=== PATIENT | female | born 1965 | race Caucasian/White ===

== ENCOUNTER 2016-11-14 16:10 | Emergency (ER) | payer OTHER ==
[~2016-11-14] VITALS: Ht 165.1 cm; Wt 110.7 kg
[~2016-11-14 16:10] MED LIST: AMPICILLIN500 MG PO; ATARAX25 MG PO; AUGMENTIN 875875 MG PO; BLOOD PRESSURE MED; KLONOPIN1 MG PO; MEDROL DOSEPAK4 MG PO; MOTRIN800 MG PO
[2016-11-14 16:45] LABS: BASO % 0.4 % (0.0-1.0); EOS # 0.1 10*3/uL (0.0-0.4); EOS % 1.4 % (1.0-4.0); HEMATOCRIT 42.6 % (37.0-47.0); HEMOGLOBIN 13.7 g/dl (12.0-16.0); LYMPH # 1.4 10*3/uL (1.3-4.4); LYMPH % 26.5 % (27.0-41.0); MEAN CELL VOLUME 83.7 fl (81.0-99.0); MEAN CORPUSCULAR HGB 26.9 pg (27.0-31.0); MEAN CORPUSCULAR HGB CONC 32.2 g/dl (33.0-37.0); MEAN PLATELET VOLUME 9.8 fl (9.6-12.3); MONO # 0.3 10*3/uL (0.1-1.0); MONO % 6.7 % (3.0-9.0); NEUT # 3.3 10*3/uL (2.3-7.9); PLATELET COUNT AUTOMATED 227 10*3/uL (130-400); RED BLOOD COUNT 5.09 10*6/uL (4.10-5.10); RED CELL DISTRI WIDTH 15.3 % (0-14.5); WHITE BLOOD COUNT 5.1 10*3/uL (4.8-10.8)
[2016-11-14 16:53] LABS: ACT PARTIAL THROMBO TIME 24.8 SECONDS (20.8-31.5)
[2016-11-14 17:06] LABS: ALBUMIN 3.4 gm/dl (3.1-4.5); ALKALINE PHOSPHATASE 114 U/L (45-117); BUN 10 mg/dl (7-24); CHLORIDE 102 mmol/L (98-107); CKMB 1.2 ng/ml (0.5-3.6); CPK 53 U/L (26-192); CREATININE 1.05 mg/dL (0.55-1.02); LIPASE 82 U/L (73-393); MAGNESIUM 2.1 mg/dL (1.5-2.1); POTASSIUM 3.7 mmol/L (3.5-5.1); SGOT/AST 11 IU/L (3-35); SGPT/ALT 17 U/L (12-78); SODIUM 137 mmol/L (136-145); TOTAL PROTEIN 7.5 gm/dL (6.4-8.2); TROPONIN I 0.017 ng/ml (<0.045)
== END 2016-11-14 19:37 | disposition admitted as inpatient to this hospital (09) ==
LOC: ED 16:10
PROVIDERS: Nurse Practitioner Family
DX: I10 Essential (primary) hypertension (principal); R06.02 Shortness of breath; R06.2 Wheezing; F17.200 Nicotine dependence, unspecified, uncomplicated; Z88.0 Allergy status to penicillin

== ENCOUNTER 2016-11-14 18:55 | Inpatient (IN) | payer OTHER ==
[~2016-11-14] VITALS: Ht 165.1 cm; Wt 110.2 kg
[2016-11-14 20:00] VITALS: BP 202/102
[2016-11-15] VITALS: BP 153/95; BP 156/108
[2016-11-15 07:02] LABS: BASO % 0.2 % (0.0-1.0); HEMATOCRIT 45.5 % (37.0-47.0); HEMOGLOBIN 14.7 g/dl (12.0-16.0); LYMPH # 0.6 10*3/uL (1.3-4.4); LYMPH % 11.4 % (27.0-41.0); MEAN CELL VOLUME 83.6 fl (81.0-99.0); MEAN CORPUSCULAR HGB CONC 32.3 g/dl (33.0-37.0); MEAN PLATELET VOLUME 10.3 fl (9.6-12.3); MONO % 0.6 % (3.0-9.0); NEUT # 4.5 10*3/uL (2.3-7.9); NEUT % 87.4 % (47.0-73.0); PLATELET COUNT AUTOMATED 262 10*3/uL (130-400); RED BLOOD COUNT 5.44 10*6/uL (4.10-5.10); RED CELL DISTRI WIDTH 15.5 % (0-14.5); WHITE BLOOD COUNT 5.1 10*3/uL (4.8-10.8)
[2016-11-15 07:33] LABS: ACT PARTIAL THROMBO TIME 24.2 SECONDS (20.8-31.5)
[2016-11-15 07:34] LABS: ALBUMIN 3.5 gm/dl (3.1-4.5); MAGNESIUM 2.3 mg/dL (1.5-2.1); POTASSIUM 3.7 mmol/L (3.5-5.1)
[2016-11-15 07:42] LABS: CREATININE 1.38 mg/dL (0.55-1.02); FREE T4 1.1 ng/dl (0.76-1.46); PHOSPHOROUS 4.6 mg/dL (2.5-4.9); THYROID STIM HORMONE (HS) 0.834 uIU/ml (0.358-4.75); TOTAL PROTEIN 8.1 gm/dL (6.4-8.2)
[2016-11-15 08:00] VITALS: BP 149/90
[2016-11-15 08:35] LABS: VITAMIN D, 25-HYDROXY 28.1 ng/mL (30-100)
[2016-11-15 12:00] VITALS: BP 154/93
[2016-11-15 16:00] VITALS: BP 164/82
[2016-11-15 20:00] VITALS: BP 123/64; BP 145/75
[2016-11-16] VITALS: BP 138/68
[2016-11-16 07:40] LABS: CREATININE 1.59 mg/dL (0.55-1.02); POTASSIUM 4.1 mmol/L (3.5-5.1)
[2016-11-16 08:00] VITALS: BP 140/75
[2016-11-16 12:00] VITALS: BP 155/78
[2016-11-16 16:00] VITALS: BP 154/83
[2016-11-16 20:00] VITALS: BP 138/82
[2016-11-17] VITALS: BP 180/90
[2016-11-17 04:00] VITALS: BP 180/92
[2016-11-17 07:05] LABS: CREATININE 1.36 mg/dL (0.55-1.02); POTASSIUM 4.2 mmol/L (3.5-5.1)
[2016-11-17 08:00] VITALS: BP 184/90
[2016-11-17] MEDS ORDERED: VITAMIN D31000 UNI1 PO (10:23)
[2016-11-17] MEDS ORDERED: LISINOPRIL10 M1 PO (10:23)
[2016-11-17] MEDS ORDERED: AMLODIPINE BESY10 MG PO (10:23)
[2016-11-17] MEDS ORDERED: DOXYCYCLINE100 M3 PO (10:24)
[2016-11-17] MEDS ORDERED: PREDNISONE10 MG PO (10:24)
[2016-11-17] MEDS ORDERED: NICODERM CQ1 EAC2 T (10:52)
[2016-11-17] MEDS ORDERED: CARDIZEM CD120 M2 PO (10:54)
[2016-11-17] MEDS ORDERED: HYDRALAZINE10 MG PO (10:58)
[2016-11-17] MEDS ORDERED: PROAIR HFA8.5 GM INH (11:58)
[2016-11-17] MEDS ORDERED: OXYGEN NAS (15:04)
[2016-11-17 16:00] VITALS: BP 146/63
== END 2016-11-17 18:13 | disposition home or self-care (01) | DRG 190 ==
LOC: EDHOLD 18:55 → 4E 18:55
PROVIDERS: Hospitalist; Internal Medicine; ADMIT Internal Medicine
DX: J44.0 Chronic obstructive pulmonary disease with (acute) lower respiratory infection (principal); N17.0 Acute kidney failure with tubular necrosis; J15.6 Pneumonia due to other Gram-negative bacteria; I11.0 Hypertensive heart disease with heart failure; I50.30 Unspecified diastolic (congestive) heart failure; I16.1 Hypertensive emergency; Z68.41 Body mass index [BMI] 40.0-44.9, adult; J44.1 Chronic obstructive pulmonary disease with (acute) exacerbation; F17.210 Nicotine dependence, cigarettes, uncomplicated; E66.01 Morbid (severe) obesity due to excess calories; F41.8 Other specified anxiety disorders; Z71.6 Tobacco abuse counseling; Z98.51 Tubal ligation status; Z88.0 Allergy status to penicillin; Z82.49 Family history of ischemic heart disease and other diseases of the circulatory system

== ENCOUNTER 2017-01-09 11:14 | Emergency (ER) | payer OTHER ==
[~2017-01-09] VITALS: Wt 108.9 kg
[~2017-01-09 11:14] MED LIST changes: +AMLODIPINE BESY10 MG PO; +CARDIZEM CD120 M2 PO; +DOXYCYCLINE100 M3 PO; +HYDRALAZINE10 MG PO; +LISINOPRIL10 M1 PO; +NICODERM CQ1 EAC2 T; +OXYGEN NAS; +PREDNISONE10 MG PO; +PROAIR HFA8.5 GM INH; +VITAMIN D31000 UNI1 PO
== END 2017-01-09 11:40 | disposition home or self-care (01) ==
LOC: ED 11:14
DX: L98.8 Other specified disorders of the skin and subcutaneous tissue (principal); Z90.710 Acquired absence of both cervix and uterus; Z98.51 Tubal ligation status; Z88.0 Allergy status to penicillin

== ENCOUNTER → 2017-01-15 | Outpatient (CLI) | payer OTHER | END | disposition home or self-care (01) | LOC: WOUNDCARE 10:15 | DX: S51.852D Open bite of left forearm, subsequent encounter (principal); Z87.891 Personal history of nicotine dependence; Z90.710 Acquired absence of both cervix and uterus; W64.XXXD Exposure to other animate mechanical forces, subsequent encounter ==

== ENCOUNTER → 2017-08-20 | Outpatient (CLI) | payer OTHER | END | disposition home or self-care (01) | LOC: US 16:58 | DX: M25.562 Pain in left knee (principal); M25.462 Effusion, left knee; I10 Essential (primary) hypertension ==

== ENCOUNTER → 2017-08-30 | Outpatient (CLI) | payer OTHER | END | disposition home or self-care (01) | LOC: RAD 11:21 | DX: J44.9 Chronic obstructive pulmonary disease, unspecified (principal); R60.0 Localized edema ==

== ENCOUNTER → 2017-11-26 | Outpatient (CLI) | payer OTHER ==
[~2017-11-26] MED LIST changes: +APRESOLINE10 MG PO; +IRON325 M3 PO; +LASIX40 MG PO; +LEVAQUIN500 M2 PO; +LEXAPRO10 MG PO; +NORVASC10 MG PO; +REQUIP0.5 MG PO; +SINGULAIR10 M1 PO; +TAMIFLU 75MG CA75 MG PO; +TOPAMAX25 M3 PO; +TYLENOL WITH C1 EACH PO; +ZESTORETIC 10-1 EACH PO
== END | disposition home or self-care (01) ==
LOC: LAB 09:25
DX: R53.83 Other fatigue (principal)

== ENCOUNTER 2018-01-04 09:37 | Inpatient (IN) | payer OTHER ==
[~2018-01-04] VITALS: Ht 165.1 cm; Wt 115.9 kg
[~2018-01-04 09:37] MED LIST changes: -APRESOLINE10 MG PO; -IRON325 M3 PO; -LASIX40 MG PO; -LEVAQUIN500 M2 PO; -LEXAPRO10 MG PO; -NORVASC10 MG PO; -REQUIP0.5 MG PO; -SINGULAIR10 M1 PO; -TAMIFLU 75MG CA75 MG PO; -TOPAMAX25 M3 PO; -TYLENOL WITH C1 EACH PO; -ZESTORETIC 10-1 EACH PO
[2018-01-04 10:30] VITALS: BP 143/63
[2018-01-04] MEDS ORDERED: REQUIP0.5 MG PO (11:14)
[2018-01-04] MEDS ORDERED: LEXAPRO10 MG PO (11:15)
[2018-01-04] MEDS ORDERED: LASIX40 MG PO (11:15)
[2018-01-04] MEDS ORDERED: TYLENOL WITH C1 EACH PO (11:19)
[2018-01-04] MEDS ORDERED: TOPAMAX25 M3 PO (11:20)
[2018-01-04] MEDS ORDERED: SINGULAIR10 M1 PO (11:20)
[2018-01-04] MEDS ORDERED: ZESTORETIC 10-1 EACH PO (11:21)
[2018-01-04] MEDS ORDERED: NORVASC10 MG PO (11:22)
[2018-01-04] MEDS ORDERED: IRON325 M3 PO (11:22)
[2018-01-04] MEDS ORDERED: APRESOLINE10 MG PO (11:23)
[2018-01-04] MEDS ORDERED: HYDRALAZINE10 MG PO ×2 (11:23→11:24)
[2018-01-04 12:00] VITALS: BP 143/63
[2018-01-04 16:00] VITALS: BP 141/67
[2018-01-04 20:00] VITALS: BP 136/59
[2018-01-05] VITALS: BP 133/62
[2018-01-05 06:35] LABS: HEMATOCRIT 35.4 % (37.0-47.0); HEMOGLOBIN 11.3 g/dl (12.0-16.0); MEAN CELL VOLUME 86.8 fl (81.0-99.0); MEAN CORPUSCULAR HGB 27.7 pg (27.0-31.0); MEAN CORPUSCULAR HGB CONC 31.9 g/dl (33.0-37.0); MEAN PLATELET VOLUME 11.2 fl (9.6-12.3); PLATELET COUNT AUTOMATED 165 10*3/uL (130-400); RED BLOOD COUNT 4.08 10*6/uL (4.10-5.10); RED CELL DISTRI WIDTH 13.8 % (0-14.5); WHITE BLOOD COUNT 6.7 10*3/uL (4.8-10.8)
[2018-01-05 07:10] LABS: ALBUMIN 3.3 gm/dl (3.1-4.5); CREATININE 1.4 mg/dL (0.55-1.02); PHOSPHOROUS 3.6 mg/dL (2.5-4.9); POTASSIUM 4.3 mmol/L (3.5-5.1); TOTAL PROTEIN 6.4 gm/dL (6.4-8.2)
[2018-01-05 07:16] LABS: THYROID STIM HORMONE (HS) 0.133 uIU/ml (0.358-4.75)
[2018-01-05 07:18] LABS: ATYPICAL LYMPHS 1 % (0-0); TOTAL CELLS COUNTED 100 #CELLS
[2018-01-05 07:19] LABS: PLATELET SUFFICIENCY NORMAL (NORMAL); STOMATOCYTE FEW
[2018-01-05 08:00] VITALS: BP 132/54
[2018-01-05 12:00] VITALS: BP 132/54
[2018-01-05 16:00] VITALS: BP 116/54
[2018-01-05 20:00] VITALS: BP 126/71
[2018-01-06] VITALS: BP 108/56
[2018-01-06 06:26] LABS: HEMATOCRIT 33.3 % (37.0-47.0); HEMOGLOBIN 10.5 g/dl (12.0-16.0); LYMPH # 0.5 10*3/uL (1.3-4.4); LYMPH % 6.7 % (27.0-41.0); MEAN CELL VOLUME 87.6 fl (81.0-99.0); MEAN CORPUSCULAR HGB 27.6 pg (27.0-31.0); MEAN CORPUSCULAR HGB CONC 31.5 g/dl (33.0-37.0); MONO # 0.3 10*3/uL (0.1-1.0); MONO % 3.6 % (3.0-9.0); NEUT # 7.2 10*3/uL (2.3-7.9); NEUT % 89.1 % (47.0-73.0); PLATELET COUNT AUTOMATED 171 10*3/uL (130-400); RED CELL DISTRI WIDTH 14.2 % (0-14.5)
[2018-01-06 06:56] LABS: CREATININE 1.39 mg/dL (0.55-1.02); POTASSIUM 4.4 mmol/L (3.5-5.1)
[2018-01-06 08:00] VITALS: BP 123/59
[2018-01-06 12:00] VITALS: BP 151/82
[2018-01-06 16:00] VITALS: BP 111/52
[2018-01-06 20:00] VITALS: BP 127/62
[2018-01-07] VITALS: BP 115/64
[2018-01-07 04:30] VITALS: BP 144/60
[2018-01-07 06:22] LABS: HEMATOCRIT 34.7 % (37.0-47.0); HEMOGLOBIN 10.7 g/dl (12.0-16.0); LYMPH # 0.4 10*3/uL (1.3-4.4); MEAN CELL VOLUME 88.5 fl (81.0-99.0); MEAN CORPUSCULAR HGB 27.3 pg (27.0-31.0); MEAN CORPUSCULAR HGB CONC 30.8 g/dl (33.0-37.0); MEAN PLATELET VOLUME 11.9 fl (9.6-12.3); MONO # 0.2 10*3/uL (0.1-1.0); MONO % 3.2 % (3.0-9.0); NEUT # 6.4 10*3/uL (2.3-7.9); NEUT % 89.8 % (47.0-73.0); PLATELET COUNT AUTOMATED 183 10*3/uL (130-400); RED BLOOD COUNT 3.92 10*6/uL (4.10-5.10); RED CELL DISTRI WIDTH 14.2 % (0-14.5); WHITE BLOOD COUNT 7.1 10*3/uL (4.8-10.8)
[2018-01-07 06:37] LABS: CREATININE 1.36 mg/dL (0.55-1.02); POTASSIUM 4.4 mmol/L (3.5-5.1)
[2018-01-07 06:58] LABS: ACT PARTIAL THROMBO TIME 19.7 SECONDS (20.8-31.5)
[2018-01-07 08:00] VITALS: BP 130/57
[2018-01-07 12:00] VITALS: BP 131/59
[2018-01-07 16:00] VITALS: BP 139/73
[2018-01-07 20:00] VITALS: BP 131/64
[2018-01-08] VITALS: BP 130/52
[2018-01-08 08:00] VITALS: BP 134/67
[2018-01-08] MEDS ORDERED: TAMIFLU 75MG CA75 MG PO (10:36)
[2018-01-08] MEDS ORDERED: LEVAQUIN500 M2 PO (10:36)
[2018-01-08] MEDS ORDERED: PREDNISONE10 MG PO (10:37)
== END 2018-01-08 11:08 | disposition home or self-care (01) | DRG 189 ==
LOC: 5E 09:37 → EDHOLD 09:37 → 5E 10:13
PROVIDERS: Family Medicine; Internal Medicine; Student in an Organized Health Care Education/Training Program
DX: J96.01 Acute respiratory failure with hypoxia (principal); J44.1 Chronic obstructive pulmonary disease with (acute) exacerbation; E87.1 Hypo-osmolality and hyponatremia; Z68.41 Body mass index [BMI] 40.0-44.9, adult; J10.1 Influenza due to other identified influenza virus with other respiratory manifestations; F41.9 Anxiety disorder, unspecified; F17.210 Nicotine dependence, cigarettes, uncomplicated; F32.9 Major depressive disorder, single episode, unspecified; E66.01 Morbid (severe) obesity due to excess calories; I10 Essential (primary) hypertension; Z90.710 Acquired absence of both cervix and uterus; Z98.51 Tubal ligation status; Z88.0 Allergy status to penicillin; Z82.49 Family history of ischemic heart disease and other diseases of the circulatory system

== ENCOUNTER 2018-01-18 11:42 | Emergency (ER) | payer OTHER ==
[~2018-01-18] VITALS: Ht 165.1 cm; Wt 122.5 kg
--- NOTE | ~2018-01-18 | EKG ---
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
[~2018-01-18 11:42] MED LIST changes: +APRESOLINE10 MG PO; +IRON325 M3 PO; +LASIX40 MG PO; +LEVAQUIN500 M2 PO; +LEXAPRO10 MG PO; +NORVASC10 MG PO; +REQUIP0.5 MG PO; +SINGULAIR10 M1 PO; +TAMIFLU 75MG CA75 MG PO; +TOPAMAX25 M3 PO; +TYLENOL WITH C1 EACH PO; +ZESTORETIC 10-1 EACH PO
[2018-01-18 12:25] LABS: BILIRUBIN NEGATIVE (NEGATIVE); BLOOD NEGATIVE (NEGATIVE); CLARITY CLEAR (CLEAR); COLOR YELLOW (YELLOW); GLUCOSE NEGATIVE (NEGATIVE); KETONE NEGATIVE (NEGATIVE); LEUKO ESTERASE TRACE (NEGATIVE); NITRITE NEGATIVE (NEGATIVE); PH 5.5 (5.0-9.0); UROBILINOGEN 0.2 E.U./dl (0.2-1.0)
[2018-01-18 12:28] LABS: BASO % 0.1 % (0.0-1.0); EOS % 0.1 % (1.0-4.0); HEMATOCRIT 40.3 % (37.0-47.0); LYMPH # 0.6 10*3/uL (1.3-4.4); LYMPH % 6.1 % (27.0-41.0); MEAN CORPUSCULAR HGB 28.1 pg (27.0-31.0); MEAN CORPUSCULAR HGB CONC 32.3 g/dl (33.0-37.0); MEAN PLATELET VOLUME 10.4 fl (9.6-12.3); MONO # 0.4 10*3/uL (0.1-1.0); MONO % 3.7 % (3.0-9.0); NEUT # 8.7 10*3/uL (2.3-7.9); NEUT % 89.3 % (47.0-73.0); PLATELET COUNT AUTOMATED 182 10*3/uL (130-400); RED BLOOD COUNT 4.63 10*6/uL (4.10-5.10); RED CELL DISTRI WIDTH 14.6 % (0-14.5); WHITE BLOOD COUNT 9.8 10*3/uL (4.8-10.8)
[2018-01-18 12:41] LABS: BACTERIA TRACE
[2018-01-18 12:45] LABS: ALBUMIN 3.7 gm/dl (3.1-4.5); ALKALINE PHOSPHATASE 101 U/L (45-117); BUN 28 mg/dl (7-24); CHLORIDE 102 mmol/L (98-107); CREATININE 1.16 mg/dL (0.55-1.02); POTASSIUM 3.6 mmol/L (3.5-5.1); SGOT/AST 8 IU/L (3-35); SGPT/ALT 30 U/L (12-78); SODIUM 140 mmol/L (136-145); TOTAL PROTEIN 6.9 gm/dL (6.4-8.2)
[2018-01-18 12:46] LABS: TROPONIN I < 0.015 ng/ml (<0.045)
== END 2018-01-18 15:15 | disposition admitted as inpatient to this hospital (09) ==
LOC: ED 11:42
PROVIDERS: Emergency Medicine
DX: R07.89 Other chest pain (principal); R06.02 Shortness of breath; I10 Essential (primary) hypertension; J44.9 Chronic obstructive pulmonary disease, unspecified; R09.89 Other specified symptoms and signs involving the circulatory and respiratory systems; E66.01 Morbid (severe) obesity due to excess calories; Z79.899 Other long term (current) drug therapy; Z87.891 Personal history of nicotine dependence; Z88.0 Allergy status to penicillin

== ENCOUNTER 2018-03-23 11:34 | Emergency (ER) | payer OTHER ==
[~2018-03-23] VITALS: Ht 165.1 cm; Wt 117.9 kg
--- NOTE | ~2018-03-23 | EKG ---
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
[2018-03-23 12:10] LABS: BASO % 0.2 % (0.0-1.0); EOS # 0.1 10*3/uL (0.0-0.4); HEMATOCRIT 28.7 % (37.0-47.0); HEMOGLOBIN 8.8 g/dl (12.0-16.0); LYMPH # 1.1 10*3/uL (1.3-4.4); LYMPH % 22.4 % (27.0-41.0); MEAN CELL VOLUME 89.7 fl (81.0-99.0); MEAN CORPUSCULAR HGB 27.5 pg (27.0-31.0); MEAN CORPUSCULAR HGB CONC 30.7 g/dl (33.0-37.0); MONO # 0.4 10*3/uL (0.1-1.0); PLATELET COUNT AUTOMATED 335 10*3/uL (130-400); RED CELL DISTRI WIDTH 16.3 % (0-14.5); WHITE BLOOD COUNT 4.7 10*3/uL (4.8-10.8)
[2018-03-23 12:18] LABS: ACT PARTIAL THROMBO TIME 23.9 SECONDS (20.8-31.5)
[2018-03-23 12:26] LABS: ALKALINE PHOSPHATASE 114 U/L (45-117); BUN 16 mg/dl (7-24); CHLORIDE 99 mmol/L (98-107); POTASSIUM 4.3 mmol/L (3.5-5.1); SGOT/AST 9 IU/L (3-35); SGPT/ALT 17 U/L (12-78); SODIUM 140 mmol/L (136-145); TOTAL PROTEIN 7.8 gm/dL (6.4-8.2)
[2018-03-23 12:28] LABS: TROPONIN I < 0.015 ng/ml (<0.045)
[2018-03-23 12:45] LABS: BILIRUBIN NEGATIVE (NEGATIVE); BLOOD NEGATIVE (NEGATIVE); CLARITY CLEAR (CLEAR); COLOR YELLOW (YELLOW); GLUCOSE NEGATIVE (NEGATIVE); KETONE NEGATIVE (NEGATIVE); LEUKO ESTERASE NEGATIVE (NEGATIVE); NITRITE NEGATIVE (NEGATIVE); PH 7.5 (5.0-9.0); UROBILINOGEN 0.2 E.U./dl (0.2-1.0)
[2018-03-23 13:05] LABS: BACTERIA 1+; WBC 0-2 wbc/hpf (0-5)
[2018-04-19] MEDS ORDERED: HYDRALAZINE10 MG PO ×2 (10:38→10:40)
[2018-04-19] MEDS ORDERED: LASIX40 MG PO (10:41)
[2018-04-19] MEDS ORDERED: LASIX20 MG PO (10:41)
[2018-04-19] MEDS ORDERED: TOPAMAX50 MG PO (10:43)
[2018-04-19] MEDS ORDERED: POTASSIUM CHLO20 ME3 PO (10:44)
[2018-04-19] MEDS ORDERED: VITAMIN D31000 UNIT PO (10:45)
[2018-04-19] MEDS ORDERED: FLOVENT HFA12 GM INH (10:47)
[2018-04-19] MEDS ORDERED: STIOLTO RESPIMAT4 GM INH (10:48)
[2018-04-23] MEDS ORDERED: DOXYCYCLINE100 M3 PO (07:46)
[2018-04-23] MEDS ORDERED: LASIX40 MG PO (07:46)
[2018-04-23] MEDS ORDERED: PREDNISONE10 MG PO (07:46)
[2018-04-23] MEDS ORDERED: PRINIVIL10 MG PO (07:47)
== END 2018-03-23 13:20 | disposition admitted as inpatient to this hospital (09) ==
LOC: ED 11:34
PROVIDERS: Nurse Practitioner Family
DX: A41.9 Sepsis, unspecified organism (principal); J18.9 Pneumonia, unspecified organism; J44.9 Chronic obstructive pulmonary disease, unspecified; E66.01 Morbid (severe) obesity due to excess calories; I13.0 Hypertensive heart and chronic kidney disease with heart failure and stage 1 through stage 4 chronic kidney disease, or unspecified chronic kidney disease; N18.9 Chronic kidney disease, unspecified; I50.32 Chronic diastolic (congestive) heart failure; Z88.0 Allergy status to penicillin; Z79.899 Other long term (current) drug therapy; Z87.891 Personal history of nicotine dependence

== ENCOUNTER 2018-03-23 12:47 | Inpatient (IN) | payer OTHER ==
--- NOTE | ~2018-03-23 | PR ---
[place], [place] PROGRESS NOTE NAME: DAVID MUNOZ [facility] #: [id number] UNIT #: [id number] ROOM: 405 DOCTOR: THOM THAKKAR MD,KEN BIRTHDATE: [birth year] DOS: 03/28/2018 PULMONARY PROGRESS NOTE SUBJECTIVE: The patient has been noted comfortable at this time. Bronchoscopy was done yesterday, with significant reduction of the respiratory symptoms noted. Denies symptoms of fever or chills or hemoptysis. The patient denies symptoms of abdominal pain. Denies symptoms of nausea or vomiting. Denies symptoms of pain of the lower extremities. Weakness and fatigue noted, which has been gradually improving. The remaining systems were reviewed, they were noted all negative. OBJECTIVE: VITAL SIGNS: Normal temperature, respiratory rate 18, heart rate 91, blood pressure 138/66. The pulse oxygen saturation recorded as 99% saturation on 3 liters nasal cannula. HEENT: No acute change. NECK: Supple. CARDIOVASCULAR: S1 and S2 audible. LUNGS: Noted without any crackles. Scattered expiratory wheezing. ABDOMEN: Soft, nontender. Bowel sounds present. EXTREMITIES: Noted without any acute edema. MUSCULOSKELETAL: Without any acute deformity. VISIBLE SKIN: No lesions or rashes. CENTRAL NERVOUS SYSTEM: Noted nonfocal. LABORATORY DATA: Culture of the sputum noted to have a moderate growth of Stenotrophomonas maltophilia. Bronchial washing from yesterday appeared with normal jesika. Final culture results are pending. Gram stain from yesterday, many white blood cells, moderate epithelial cells, few Gram-positive cocci in pairs and chains and clusters. Gram-positive bacilli and Gram-positive cocci in clusters as well. IMPRESSION: 1. Acute tracheobronchitis noted with Stenotrophomonas maltophilia. 2. Hemoptysis, related to bronchitis, resolving. 3. Chronic obesity. 4. Acute exacerbation of chronic obstructive pulmonary disease. PLAN OF MANAGEMENT: The patient will be started on Bactrim-DS; the patient's drug of choice. Await the culture results until tomorrow to make the final discharge for the patient to home setting with oral antibiotic, confirmation of the current abnormal growth will be obtained from the bronchial washings as well. Other supportive therapy, plan of management. Additional changes in the treatment will be made based on the progression of illness. Levaquin will be discontinued. [place], [place] PROGRESS NOTE NAME: DAVID MUNOZ UNIT #: [id number] ROOM: 405 DOCTOR: KEN CHAPMAN MD BIRTHDATE: [birth year] KEN TOMAS MD CM:PNTRANS 1245 140 KEN THAKKAR MD 03/28/18 1407 interface
--- NOTE | ~2018-03-23 | PR ---
[place], [place] PROGRESS NOTE NAME: DAVID MUNOZ [facility] #: [id number] UNIT #: [id number] ROOM: 405 DOCTOR: THOM THAKKAR MD,KEN BIRTHDATE: [birth year] DOS: 03/29/2018 PULMONARY PROGRESS NOTE SUBJECTIVE: The patient has not been noted any symptoms of chest pain, fever or chills. She has not been reported any symptoms of chest pain or any hemoptysis. Coughing has improved markedly. OBJECTIVE: VITAL SIGNS: Normal temperature, respiratory rate 20, heart rate 90, blood pressure 153/88, pulse oxygen saturation 96% on 3 liters cannula. HEENT: Chronic obesity. NECK: Supple. CARDIOVASCULAR: S1, S2 audible. LUNGS: Without any wheezing or crackles. ABDOMEN: Soft and obese. EXTREMITIES: Without any acute edema. IMPRESSION: Resolving acute tracheobronchitis with Stenotrophomonas maltophilia with acute exacerbation of chronic obstructive pulmonary disease. PLAN OF MANAGEMENT: No changes in plan of management. The patient has been considered for discharge today on oral antibiotic and tapering prednisone. Outpatient followup was already established with the patient as previously will be kept by the patient. KEN TOMAS MD CM:RICCI 1357 [id number] KEN THAKKAR MD 03/29/18 2313 interface
--- NOTE | ~2018-03-23 | CON ---
[place], [place] REPORT OF CONSULTATION NAME: DAVID MUNOZ [facility] #: [id number] UNIT #: [id number] ROOM: 405 DOCTOR: KEN CHAPMAN MD BIRTHDATE: [birth year] DOS: 03/26/2018 PULMONARY CONSULTATION, EVALUATION AND MANAGEMENT CONSULTATION REQUESTED BY: Hospitalist service. REASON FOR CONSULTATION: For the assessment of current acute respiratory complaints. HISTORY OF PRESENT ILLNESS: This is a 53-year-old white female patient who has been admitted to the hospital on 03/23/2018, has been managed by the hospitalist services requesting the consultation. The patient reported history of COPD and has been noted acutely ill since 2017. She has been noted with symptoms of coughing with some sputum expectoration at this time. She has been reporting symptoms of progressive chest congestion with increased shortness of breath, wheezing, and tightness in the chest. She was also noted with small amount of hemoptysis associated with the symptoms with a hard cough. The hemoptysis had been noted small, not noted significantly worsened. She has been treated in this hospital since of this month and was noted without any improvement in the respiratory symptoms. She denies any symptoms of chest pain. She denies symptoms of chest trauma. REVIEW OF SYSTEMS: CONSTITUTIONAL SYMPTOMS: Reported symptoms of fatigue that have been persistent since hospitalization. EYES: Denies any burning, redness, or tenderness. EARS, NOSE, THROAT SYMPTOMS: Denies sore throat, hoarseness, otalgia, postnasal drainage or epistaxis. CARDIOVASCULAR SYSTEM: Denies anginal pain, edema, or pain of the lower extremities. GASTROINTESTINAL SYMPTOMS: Denies dysphagia, nausea, vomiting, diarrhea, abdominal pain, hematemesis, melena, or hematochezia. GENITOURINARY SYMPTOMS: No dysuria or suprapubic pain. MUSCULOSKELETAL SYMPTOMS: No acute joint pain, redness, or tenderness. SKIN: Denies lesions or rashes. CENTRAL NERVOUS SYSTEM: Denies any focal neurologic deficit, tingling sensation in the extremities or syncopal episodes. Remaining systems were reviewed. They were noted all negative. PAST MEDICAL HISTORY: For this patient reported as: 1. Chronic morbid obesity. 2. Essential hypertension. 3. Congestive heart failure, diastolic dysfunction. 4. COPD. 5. Chronic kidney disease. 6. Atherosclerosis with renal artery restenosis as well. 7. Uncomplicated moderate persistent bronchial asthma. 8. History restless leg syndrome. [place], [place] REPORT OF CONSULTATION [facility] [id number] UNIT #: [id number] ROOM: 405 DOCTOR: KEN CHAPMAN MD BIRTHDATE: [birth year] PAST SURGICAL HISTORY: 1. Lumpectomy. 2. Hysterectomy. 3. Tubal ligation. SOCIAL HISTORY: The patient stated she is , has 4 children, lived at home, noted to heavy tobacco use in the form of cigars up to 2 packs per day started teenager, discontinued in 2018. FAMILY HISTORY: The patient's father at 70 years old, complication of colon cancer. Mother at age of 6262 years old with acute myocardial infarction. HOME MEDICATIONS: Listed use of Tylenol No. 3, Norvasc, Lexapro, ferrous sulfate, Lasix, hydralazine, lisinopril with hydrochlorothiazide, Singulair, Requip, Topamax and nocturnal use of oxygen 2 liter nasal cannula. CURRENT MEDICATIONS: Administered for the patient on this hospitalization were noted as the use of hydralazine, ferrous sulfate, Norvasc, Topamax, Lexapro, Lovenox for DVT prophylaxis, hydralazine, Protonix, Singulair, Requip, Mucinex, Solu-Medrol 40 mg b.i.d., DuoNeb, Levaquin, and other p.r.n. medications. DRUG ALLERGY HISTORY: THE PATIENT REPORTED ALLERGIC TO PENICILLIN CAUSING SKIN HIVES. PHYSICAL EXAMINATION: GENERAL: This is a 53-year-old female, currently sitting on the bed without any acute distress. Height of 5 feet 5 inches, weight of 259 pounds, BMI 43. VITAL SIGNS: The patient has normal temperature, respiratory rate 18-20, heart rate of 101-97, blood pressure 154/82-145/73. The pulse oxygen saturation on 3 liters nasal cannula 94% saturation. HEENT: Head was atraumatic, chronic obesity. Decreased posterior pharyngeal space, high tongue base and crowding of soft tissue structures. CARDIOVASCULAR SYSTEM: S1, S2 is audible. LUNGS: With moderate decreased breath sounds with expiratory wheezing. There were no crackles. ABDOMEN: Soft and obese. EXTREMITIES: The patient was noted with chronic obesity findings. VISIBLE SKIN: No lesions or rashes. MUSCULOSKELETAL: Without any acute deformities. CENTRAL NERVOUS SYSTEM: The patient's cranial nerves 2-12 intact. LABORATORY DATA: Lab reviewed in this consultation are influenza A and B, nasal washing antigens were noted negative on 03/23/2018. CBC on 03/23/2018; WBC count 4.7, hemoglobin 8.8, hematocrit 28.7 with normal platelet count. The lactic acid 2.2, follow up 1.5 on 03/23/2018. PT/PTT on 03/23/2018 was normal. CMP of 03/23/2018; BUN 16, creatinine 1.30, glucose 120. The remaining electrolytes are normal. Troponin normal. CSF from 03/23/2018. CBC of 03/26/2018; WBC count normal, hemoglobin 8.4, hematocrit 28.2, platelet count normal. BMP of 03/26/2018; BUN of 36, creatinine 1.27, glucose 122. Chest [place], [place] REPORT OF CONSULTATION NAME: DAVID MUNOZ UNIT #: [id number] ROOM: 405 DOCTOR: THOM THAKKAR MD,[facility] BIRTHDATE: [birth year] x-ray that was done on admission was reviewed without any acute pulmonary infiltration. Small basilar areas of atelectasis would be considered. Chest x-ray that was done this morning was reviewed, does not show any acute pulmonary infiltration. Some hyperinflation of the lungs. A small pleural fluid cannot be completely excluded. IMPRESSION: 1. The patient who has been currently admitted to the hospital noted with chronic respiratory symptoms with current acute worsening consistent with acute exacerbation of chronic obstructive pulmonary disease and bronchial asthma, failed to respond to the outpatient treatment and current inpatient therapy. Severe cough and the patient's other symptoms including wheezing and shortness of breath persisted. 2. Clinical assessment, the patient suspected strongly for obstructive sleep apnea disorder. 3. Small hemoptysis, most likely related to the excessive coughing and bronchitis, rule out any endobronchial obstruction. 4. The patient with chronic morbid obesity. 5. Elevation of BUN and creatinine secondary to chronic kidney disease, stage 3 with renal artery restenosis. 6. The patient with history of essential hypertension as well. 7. Basilar area of atelectasis. There was no evidence of acute pneumonia. PLAN OF THERAPY: The patient has been getting bronchodilators and corticosteroids. Continue same dose. Continue mucolytic agents. She has been assessed for therapy. Bronchoscopy planned to be done tomorrow morning. Small hemoptysis noted with the blood-tinged sputum, most likely due to chronic bronchitis, rule out any endobronchial lesions. DVT prophylaxis to be continued. Other additional treatment changes will be made based on progression of illness. Supportive care, other therapy, and plan of management. She has expectorated a small amount of sputum today, which has been already sent for Gram stain and culture. It will be monitored. Risk and benefits of the bronchoscopy were discussed with the patient and other family members. The patient accepted that and the procedure was scheduled to be done tomorrow morning. N.p.o. past midnight status will be achieved. KEN TOMAS MD CM:CONSTR:REPORT OF CONSULTATION 1232 03/27/18 0051 interface
--- NOTE | ~2018-03-23 | EKG ---
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
--- NOTE | ~2018-03-23 | PROC NOTE ---
[place], [place] PROCEDURE NOTE NAME: DAVID MUNOZ UNIT #: [id number] ROOM: 405 DOCTOR: THOM THAKKAR MD,KEN BIRTHDATE: [birth year] DOS: 03/27/2018 PROCEDURE: Fiberoptic bronchoscopy. PREOPERATIVE DIAGNOSES: 1. Severe nonproductive cough ongoing for several weeks, currently ongoing acute exacerbation of chronic obstructive pulmonary disease with maximal medical management. 2. Hemoptysis. PROCEDURE DESCRIPTION: Informed consent obtained for the patient. She was brought to the OR and placed in supine position. Conscious sedation administered by the Anesthesia Department. After achieving proper sedation, airway introduced into the mouth. Bronchoscope advanced to airway into laryngeal area. Epiglottis and vocal cords were seen. Vocal cord is moving symmetrical movements. Bronchoscope entered through vocal cord and tracheal lumen noted with moderate amount of thick mucus secretion with some small amount of purulent secretion mixture, suctioned out the edin level. The right upper, right middle, right lower, left upper, lingular lower bronchi were all examined. Moderate amount of thick mucus impaction noted in endobronchial tree, most of the subsegments. The bronchial washing was taken. All of the bronchial subsegments mucus plug removed. No endobronchial obstructive lesions noted. There was no evidence of active hemoptysis or any evidence of previous hemoptysis. Bronchial washings sent for culture. Postoperative findings were discussed with the patient's family members in detail. No immediate change in treatment at this time will be necessary. Continue current therapy and plan of management as previously. KEN TOMAS MD CM:PROCNOTE:PROCEDURE NOTE 1105 0000 KEN THAKKAR MD
--- NOTE | ~2018-03-23 | PR ---
[place], [place] PROGRESS NOTE NAME: DAVID MUNOZ [facility] #: [id number] UNIT #: [id number] ROOM: 405 DOCTOR: THOM THAKKAR MD,KEN BIRTHDATE: [birth year] DOS: 03/27/2018 SUBJECTIVE: The patient remains in the hospital. The patient still noted with severe cough, which remains mostly nonproductive. Small amount of sputum expectoration noted at time. The wheezing with chest tightness, shortness breath was also reported. Denies any symptoms of fever or chills. Denies any symptoms of pain of the lower extremity, any edema. He denies symptoms of nausea, vomiting, diarrhea or any abdominal pain. Remaining systems were reviewed, which noted all negative. OBJECTIVE: VITAL SIGNS: For the patient, which are recorded shows as normal temperature, respiratory rate of 20, heart rate of 103-94, blood pressure 48/84-140/62. Pulse oxygen saturation on 3 liters nasal cannula was 92% saturation. HEENT: Chronic obesity. Head was atraumatic. NECK: Short and obese. CARDIOVASCULAR: S1, S2 is audible. LUNGS: The patient was noted with moderate decreased breath sounds without any crackles. Expiratory wheezing scattered. ABDOMEN: Soft and obese. EXTREMITIES: The patient noted without any acute edema. MUSCULOSKELETAL: Without acute deformities. CENTRAL NERVOUS SYSTEM: Cranial nerves 2-12 intact. LABORATORY DATA: CBC, BMP today: BUN 36, creatinine 1.31, glucose 117. CBC of this morning, WBC count of 11.1, hemoglobin 8.5 ____, hematocrit 28.7, platelet count was normal. Culture of the sputum from the 15th of this month shows moderate growth of gram-negative bacilli, pending cultures, final results are pending. The Gram stain moderate epithelial cells, moderate white blood cells, few gram-positive cocci in pairs and clusters, gram-positive and gram-negative bacilli. IMPRESSION: 1. The patient who has been currently noted with an acute exacerbation of chronic obstructive pulmonary disease, gram-negative bacilli bronchitis. Pending identification and sensitivity. 2. Hemoptysis mostly related to severe acute bronchitis. 3. Morbid obesity. Basilar areas of atelectasis. PLAN OF MANAGEMENT: Continuation of the bronchodilators and oxygen supplementation. Proceed with the fibrobronchoscopy. Coverage for the gram-negative infection would be changed for the patient after the culture results. Currently, the patient is on Levaquin that will be continued. Proceed with the fiberoptic bronchoscopy in additional treatment changes management would be necessarily done after bronchoscopy. Supportive therapy, plan and management, care of the care at the present time. [place], [place] PROGRESS NOTE NAME: DAVID MUNOZ UNIT #: [id number] ROOM: 405 DOCTOR: THOM THAKKAR MD,KEN BIRTHDATE: [birth year] KEN TOMAS MD CM:PNTRANS 1104 KEN THAKKAR MD 03/28/187 interface
--- NOTE | 2018-03-23 13:23 | NUR ---
[facility] , under the services of TIBURCIO Garcia DO with a diagnosis of SEPSIS. Chief complaint is SOB. Patient arrived via bed from ER. Monitor applied. Initial assessment completed. Vital signs taken and recorded. TIBURCIO GARCIA DO notified of admission to the unit. Orders received. See assessment for past medical history, medications and allergies. Patient and/or family oriented to unit. [facility] visitation policy reviewed. Clothing/patient valuable form completed. REYES YOUNG
[2018-03-23 14:47] VITALS: BP 127/69
[2018-03-23 16:00] VITALS: BP 138/81
--- NOTE | 2018-03-23 18:57 | NUR ---
PT INSTRUCTED ON FLUTTER. PT TOLERATED WELL. PT CAN DO ON HER OWN
--- NOTE | 2018-03-23 19:09 | NUR ---
PATIENT RESTING IN BED WITH VISITOR AT BEDSIDE. DENIES ANY NEEDS OR COMPLAINTS AT THIS TIME. 3L O2 VIA NC IN PLACE. IV FLUIDS INFUSING. BED IS IN LOWEST POSITION WITH WHEELS LOCKED. CALL LIGHT IS WITHIN REACH. WILL CONTINUE TO MONITOR. ENCOURAGED TO USE CALL LIGHT FOR NEEDS.
[2018-03-23 20:00] VITALS: BP 110/74
[2018-03-24] VITALS: BP 110/73
[2018-03-24 07:22] LABS: BASO % 0.2 % (0.0-1.0); HEMOGLOBIN 8.1 g/dl (12.0-16.0); LYMPH # 0.7 10*3/uL (1.3-4.4); LYMPH % 13.1 % (27.0-41.0); MEAN CELL VOLUME 92.2 fl (81.0-99.0); MEAN CORPUSCULAR HGB 27.6 pg (27.0-31.0); MEAN PLATELET VOLUME 10.7 fl (9.6-12.3); MONO # 0.2 10*3/uL (0.1-1.0); MONO % 4.3 % (3.0-9.0); NEUT # 4.3 10*3/uL (2.3-7.9); NEUT % 81.3 % (47.0-73.0); NUCLEATED RED BLOOD CELL 0.4 % (0.0-0.0); PLATELET COUNT AUTOMATED 332 10*3/uL (130-400); RED BLOOD COUNT 2.93 10*6/uL (4.10-5.10); RED CELL DISTRI WIDTH 16.3 % (0-14.5); WHITE BLOOD COUNT 5.3 10*3/uL (4.8-10.8)
[2018-03-24 07:26] LABS: ALBUMIN 2.6 gm/dl (3.1-4.5); CREATININE 1.56 mg/dL (0.55-1.02); PHOSPHOROUS 4.3 mg/dL (2.5-4.9); POTASSIUM 4.5 mmol/L (3.5-5.1)
[2018-03-24 07:36] LABS: THYROID STIM HORMONE (HS) 0.248 uIU/ml (0.358-4.75); TOTAL PROTEIN 7.1 gm/dL (6.4-8.2)
[2018-03-24 07:50] LABS: ACT PARTIAL THROMBO TIME 23.4 SECONDS (20.8-31.5)
[2018-03-24 08:00] VITALS: BP 128/54
--- NOTE | 2018-03-24 08:00 | NUR ---
PATIENT SITTING UP IN BED. 02 IN USE VIA 3LNC. POX 100% VIA 3LNC. FELIX. LUNGS DIMINISHED T/O WITH I/E WHEEZES. BLLE EDEMA. TEDS APPLIED. WILL CONTINUE TO MONITOR. CALL LIGHT WITHIN REACH. VSS.
--- NOTE | 2018-03-24 11:28 | NUR ---
FAMILY MEMBER AT BEDSIDE. PT RESTING QUIETLY IN BED. 02 IN USE. WILL CONTINUE TO MONITOR.
[2018-03-24 12:00] VITALS: BP 125/62
[2018-03-24 16:00] VITALS: BP 127/72
--- NOTE | 2018-03-24 16:04 | NUR ---
PT MEDICATED WITH PO TYLENOL PER PRN ORDER FOR C/O HEADACHE. WILL MONITOR EFFECTIVENESS. 02 IN USE. VSS.
--- NOTE | 2018-03-24 17:30 | NUR ---
TYLENOL EFFECTIVE PER PT. WILL CONTINUE TO MONITOR. VSS.
--- NOTE | 2018-03-24 19:10 | NUR ---
PATIENT SITTING UP IN BED WITH VISITOR AT BEDSIDE WATCHING TV. DENIES ANY NEEDS OR COMPLAINTS AT THIS TIME. 3L O2 VIA NC IN PLACE. BED IS IN LOWEST POSITION WITH WHEELS LOCKED. CALL LIGHT IS WITHIN REACH. ENCOURAGED TO USE CALL LIGHT FOR NEEDS. WILL MONITOR.
[2018-03-24 20:00] VITALS: BP 123/66
--- NOTE | 2018-03-24 21:04 | NUR ---
PRN RESTORIL GIVEN FOR COMPLAINTS OF INSOMNIA. WILL EVALUATE EFFECTIVENESS. CALL LIGHT IS WITHIN REACH.
--- NOTE | 2018-03-24 21:06 | NUR ---
PRN RESTORIL GIVEN FOR COMPLAINTS OF INSOMNIA. WILL EVALUATE EFFECTIVENESS.
--- NOTE | 2018-03-24 22:36 | NUR ---
PRN RESTORIL APPEARS TO BE EFFECTIVE. PATIENT RESTING IN BED WITH EYES CLOSED. RESPIRATIONS ARE EASY AND REGULAR. NO DISTRESS IS NOTED. 3L O2 VIA NC IN PLACE. WILL CONTINUE TO MONITOR. CALL LIGHT IS WITHIN REACH.
[2018-03-25] VITALS: BP 138/60
--- NOTE | 2018-03-25 04:10 | NUR ---
PATIENT RESTING IN BED SUPINE WITH EYES CLOSED. RESPIRATIONS ARE EASY AND REGULAR. NO DISTRESS IS NOTED. 3L O2 NC IS IN USE. WILL MONITOR.
--- NOTE | 2018-03-25 05:23 | NUR ---
PRN TYLENOL GIVEN FOR COMPLAINTS OF HEADACHE. WILL EVALUATE EFFECTIVENESS. CALL LIGHT IS WITHIN REACH.
[2018-03-25 08:00] VITALS: BP 147/81
--- NOTE | 2018-03-25 09:00 | NUR ---
Language Teacher in to talk to patient. Patient states lives at home with erika. There are no steps in the home. Physician: bhargavi mauricio [facility] Home health services: [facility] Patient's level of ADLs: MINIMAL ASSIST Patient has working utilities: all working DME: home oxygen, portable tanks, nebulizer, walker Follow-up physician's appointment after d/c: will be made by hospitalist nurse director upon discharge Does patient want to access PORTAL?: no Discharge plan discussed with patient, patient lives at home with erika, she states she uses a walker for ambulation, she has home oxygen and portable tanks, patient states she has been driving. she also states she has [employer] at present. discussed with her a short term prison for rehab prior to going back home. patient declined, stated she has nursing, physical therapy and aids with her home health. case management will follow. ARY DAY
--- NOTE | 2018-03-25 10:38 | NUR ---
DR TOMAS NOTIFIED OF CONSULT.
[2018-03-25 12:00] VITALS: BP 142/82
--- NOTE | 2018-03-25 12:50 | NUR ---
DAVID MUNOZ [id number] Please refer to the physician's history and physical for past medical history, comorbid conditions, and allergies. Diagnosis: SEPSIS, PNEUMONITIS Jordon Score: 19,LOW OR NO RISK WOUND DESCRIPTIONS: Location of the wound: left lower abdomen Thickness: Partial Size: 0.5cm x 0.4cm x 0.1cm Tunneling: none Undermining: none Sinus Tract: none Presence of Exudate: none Amount: None Color: Red Odor: None Periwound Skin Appearance: Normal Wound edges: approximated Pain (associated with wound): none at time of assessment How does patient state this happened? pt states she gets reoccurring boils and they burst on their own. come and go and this one started about 2 months ago. Intact scab noted to middle aspect of lower abdomen. No drainage noted. No redness noted. Surface the patient is resting on: Isoflex SKIN PREVENTION RECOMMENDATION: 1. Pressure redistribution support surface as appropriate 2. Elevate heels 3. Remove boots/TEDS every shift and reapply 4. Head of bed 30 degrees as tolerated 5. Assess nutrition and hydration 6. Manage moisture 7. Avoid the use of containment devices while in bed 8. Use absorptive products on surfaces limit layers of linens on bed 9. Turn and reposition every 1-2 hours in bed and every 1 hour in chair as tolerated 10. Weight shifts every 15 minutes while up in chair 11. Offloading with pillows or device to keep heels elevated off bed 12. Monitor skin at least every shift 13. Inspect under medical devices twice a day WOUND TREATMENT RECOMMENDATIONS: Patient is requesting follow up care in the wound care center. Partial thickness guidelines: Cleanse left lower abodmen with nss and apply sureprep around the wound hydrogel to wound bed and cover with optifoam gentle.
--- NOTE | 2018-03-25 13:52 | NUR ---
Dr. Hightower notified of wound care recommendations. Follow up appointment in the wound care center is Sunday03/29/18 @ 2:00pm with Joanna Velarde ELECTRONIC WARFARE OFFICER-.
[2018-03-25 16:00] VITALS: BP 130/69
[2018-03-25 20:00] VITALS: BP 131/82
--- NOTE | 2018-03-25 22:44 | NUR ---
Requested and medicated with Restoril at 2148 to aid sleep. Will continue to monitor.
[2018-03-26] VITALS: BP 151/90
--- NOTE | 2018-03-26 00:25 | NUR ---
MEDICATED WITH PRN TYLENOL FOR C/O LEG PAIN RATED 7/10 ON A 0/10 PAIN SCALE
[2018-03-26 05:51] LABS: HEMATOCRIT 28.2 % (37.0-47.0); HEMOGLOBIN 8.4 g/dl (12.0-16.0); MEAN CELL VOLUME 93.1 fl (81.0-99.0); MEAN CORPUSCULAR HGB 27.7 pg (27.0-31.0); MEAN CORPUSCULAR HGB CONC 29.8 g/dl (33.0-37.0); MEAN PLATELET VOLUME 10.3 fl (9.6-12.3); NUCLEATED RED BLOOD CELL 0.1 10*3/uL (0.0-0.0); NUCLEATED RED BLOOD CELL 0.8 % (0.0-0.0); PLATELET COUNT AUTOMATED 368 10*3/uL (130-400); RED BLOOD COUNT 3.03 10*6/uL (4.10-5.10); RED CELL DISTRI WIDTH 16.8 % (0-14.5); WHITE BLOOD COUNT 10.2 10*3/uL (4.8-10.8)
[2018-03-26 05:57] VITALS: BP 141/73
[2018-03-26 06:16] LABS: BASOPHILS 1 % (0-1); TOTAL CELLS COUNTED 100 #CELLS
[2018-03-26 06:17] LABS: PLATELET SUFFICIENCY NORMAL (NORMAL); POLYCHROMASIA SLIGHT
[2018-03-26 06:23] LABS: CREATININE 1.27 mg/dL (0.55-1.02); POTASSIUM 4.3 mmol/L (3.5-5.1)
[2018-03-26 08:00] VITALS: BP 154/82
--- NOTE | 2018-03-26 09:00 | NUR ---
case management visits with patient, daughter present, discussed with her again a short term care home for rehab prior to going back home, patient declined, she has home health and would like to return home and resume the home health. case management will notify [facility] when patient is medically stable for discharge
--- NOTE | 2018-03-26 09:43 | NUR ---
PT STATES TYLENOL HELPING. STILL EXHIBITS DISCOMFORT TO BLE. WILL MONITOR.
--- NOTE | 2018-03-26 11:00 | NUR ---
PT MEDCIATION WITH CEPACOL FOR THROAT IRRITATION. WILL MONITOR.
[2018-03-26 12:00] VITALS: BP 148/77
[2018-03-26 16:00] VITALS: BP 113/57
[2018-03-26 20:00] VITALS: BP 148/84; BP 152/91
--- NOTE | 2018-03-26 21:41 | NUR ---
PRN TYLENOL GIVEN FOR PAIN IN THE LOWER EXTREMITIES FROM SWELLING. 06/19. CALL LIGHT WITHIN REACH, WILL CLIFF
--- NOTE | 2018-03-26 23:30 | NUR ---
PRN MEDICATION APPEARS EFFECTIVE, PT SLEEPING
[2018-03-27] VITALS (9 sets, daily range): BP systolic 96–162; BP diastolic 62–82
--- NOTE | 2018-03-27 01:20 | NUR ---
24 HR chart check completed.
[2018-03-27 06:19] LABS: HEMATOCRIT 28.7 % (37.0-47.0); HEMOGLOBIN 8.5 g/dl (12.0-16.0); MEAN CELL VOLUME 93.5 fl (81.0-99.0); MEAN CORPUSCULAR HGB 27.7 pg (27.0-31.0); MEAN CORPUSCULAR HGB CONC 29.6 g/dl (33.0-37.0); MEAN PLATELET VOLUME 10.6 fl (9.6-12.3); NUCLEATED RED BLOOD CELL 0.2 10*3/uL (0.0-0.0); NUCLEATED RED BLOOD CELL 1.4 % (0.0-0.0); PLATELET COUNT AUTOMATED 369 10*3/uL (130-400); RED BLOOD COUNT 3.07 10*6/uL (4.10-5.10); RED CELL DISTRI WIDTH 17.2 % (0-14.5); WHITE BLOOD COUNT 11.1 10*3/uL (4.8-10.8)
[2018-03-27 06:43] LABS: CREATININE 1.31 mg/dL (0.55-1.02); POTASSIUM 4.1 mmol/L (3.5-5.1)
[2018-03-27 06:48] LABS: TOTAL CELLS COUNTED 100 #CELLS
[2018-03-27 06:49] LABS: PLATELET SUFFICIENCY NORMAL (NORMAL); POLYCHROMASIA SLIGHT
[2018-03-27 06:50] LABS: STOMATOCYTE FEW
--- NOTE | 2018-03-27 08:10 | NUR ---
PATIENT OFF FLOOR FOR SCHEDULED BRONCH.
--- NOTE | 2018-03-27 09:00 | NUR ---
case management visits with patient, patient states she will be going home when able and will continue [facility], patient denies any other needs at this time
--- NOTE | 2018-03-27 09:49 | NUR ---
PATIENT RETURNED TO ROOM. PT ALERT AND ORIENTED X3. FAMILY AT BESIDE. 02 IN USE VIA 3LNC. POX 93% VIA 3LNC. LUNGS DIMINISHED WITH I/E WHEEZES. FULL LIQUID DIET AT THIS TIME. BP 155/76. WILL CONTINUE TO MONITOR. VSS.
--- NOTE | 2018-03-27 10:14 | NUR ---
PT ACCEPTED PO MEDS WITHOUT ANY DIFFICULTY. WILL CONTINUE TO MONITOR. RESPIRATIONS EASY, REGULAR AT REST. 02 IN USE. CALL LIGHT WITHIN REACH.
--- NOTE | 2018-03-27 13:22 | NUR ---
Follow up appointment changed in the wound care center since patient is still inpatient for 04/02/18 at 1:00pm with Joanna MANCERA.
--- NOTE | 2018-03-27 14:16 | NUR ---
PT TOLERATED FULL LIQUID DIET WITHOUT ANY DIFFICULTY.
--- NOTE | 2018-03-27 15:53 | NUR ---
PT MEDICATED WITH PO TYLENOL PER PRN ORDER FOR C/O LEG DISCOMFORT. CHRONIC LEG PAIN PER PT. WILL MONITOR EFFECTIVENESS.
--- NOTE | 2018-03-27 17:00 | NUR ---
TYLENOL EFFECTIVE PER PT. WILL CONTINUE TO MONITOR.
--- NOTE | 2018-03-27 20:32 | NUR ---
AWAKE/ALERT FOR SHIFT ASSESSMENT. RESPIRATIONS EASY/REG ON 3L NC. PLEASANT AND COOPERATIVE WITH CARE. BLE NOTED-TUBIGRIPS IN PLACE. AMBULATES TO BEDSIDE COMMODE WITH STEADY GAIT ASSESSED. BED IN LOW POSITION, WHEELS LOCKED, CALL LIGGT IN REACH, WILL MONITOR.
--- NOTE | 2018-03-27 21:50 | NUR ---
PATIENT MEDICATED WITH PRN TYLENOL ORDERD FOR C/O BLE RATED 6/10. MEDICATED WITH PRN RESTORIL ORDERED FOR C/O INSOMINA.
--- NOTE | 2018-03-27 21:53 | NUR ---
PATIENT MEDICATED WITH PRN TYLENOL ORDERED FOR C/O BLE PAIN RATED 6/10
--- NOTE | 2018-03-28 00:03 | NUR ---
PATIENT SLEEPING. NO S/S OF DISTRESS NOTED. RESPIRATIONS EASY/REG ON 3L NC. CALL LIGHT IN REACH. WILL MONITOR.
--- NOTE | 2018-03-28 04:18 | NUR ---
SLEEPING. NO S/S OF DISTRESS NOTED. 3LNC MAINTAINED. CALL LIGHT IN REACH
[2018-03-28 07:33] LABS: CREATININE 1.21 mg/dL (0.55-1.02)
[2018-03-28 08:01] VITALS: BP 140/80
--- NOTE | 2018-03-28 09:00 | NUR ---
case management visits with patient, patient will be going home when able and resume home health, no other needs at this time
--- NOTE | 2018-03-28 10:00 | NUR ---
NO DRESSING APPLIED TO WOUND PER PT REQUEST. NO COMPLAINTS AT THIS TIME. CALL LIGHT WITHIN REACH. WILL CONTINUE TO MONITOR. MARGO BERNAL
--- NOTE | 2018-03-28 11:10 | NUR ---
PT C/O OF HEADACHE RATED AT A FOUR. PT ALSO C/O BL LOWER LEG PAIN RATED AT A 5. WILL CHART EFFECTIVENESS. PT HAS NO OTHER COMPLAINTS AT THIS TIME. WILL CONTINUE TO MONITOR. MARGO BERNAL
[2018-03-28 12:00] VITALS: BP 138/66
--- NOTE | 2018-03-28 12:10 | NUR ---
PT IS RESTING COMFORTABLY WITH EYES CLOSED AND NO VISIBLE SIGNS OF DISTRESS. CALL LIGHT WITHIN REACH. BED IN LOWEST POSITION. WILL CONTINUE TO MONITOR. MARGO BERNAL
--- NOTE | 2018-03-28 12:46 | NUR ---
IV SITE OUTDATED BUT PATIENT PREFERS TO LEAVE IV IN LONG SITE IS ASYMPTOMATIC MARGO PENACC
--- NOTE | 2018-03-28 12:52 | NUR ---
PT UP EATING LUNCH. IV SITE OUTDATED. PT REQUESTED NOT TO HAVE IT CHANGED AT THIS TIME. PT REFUSED AM CARE, STATED "MAYBE LATER." NO COMPLAINTS AT THIS TIME. BED IN LOWEST POSITION. CALL LIGHT WITHIN REACH. MARGO BERNAL
[2018-03-28 14:09] LABS: ACID FAST SPEC PROCESSING Concentration (.)
[2018-03-28 16:00] VITALS: BP 148/78
--- NOTE | 2018-03-28 19:50 | NUR ---
AWAKE/ALERT FOR SHIFT ASSESSMENT. RESPIRATIONS EASY/REG ON 3LNC. FAMILY AT BEDSIDE. NO VOICED COMPLAINTS AT THIS TIME. BED IN LOW POSITION. WHEELS LOCKED, CALL LIGHT IN REACH. WILL MONITOR.
[2018-03-28 20:00] VITALS: BP 128/75
[2018-03-29] VITALS: BP 145/76
[2018-03-29 08:00] VITALS: BP 153/88
--- NOTE | 2018-03-29 09:00 | NUR ---
case management visits with patient, patient states she is probably going home today, case management called [facility] and spoke to Nayeli, patient's information faxed to Nayeli and informed her that patient is probably going home today. Nayeli stated they would see patient on Sunday
[2018-03-29] MEDS ORDERED: SEPTDS PO (10:49)
[2018-03-29] MEDS ORDERED: PREDNISONE10 MG PO (10:49)
--- NOTE | 2018-03-29 12:19 | NUR ---
Discharge instructions reviewed with patient/family. Patient receptive and verbalizes understanding. Follow-up care arranged. Written instructions given to patient/family. HEP LOCK REMOVED, DRESSING AND PRESSURE APPLIED. ALL BELONGINGS ACCOUNTED FOR AND SENT WITH PATIENT. OFF FLOOR AT THIS TIME VIA WHEELCHAIR FOR DISCHARGE. DAVY BUNDY
[2018-04-19] MEDS ORDERED: HYDRALAZINE10 MG PO ×2 (10:38→10:40)
[2018-04-19] MEDS ORDERED: LASIX20 MG PO (10:41)
[2018-04-19] MEDS ORDERED: LASIX40 MG PO (10:41)
[2018-04-19] MEDS ORDERED: TOPAMAX50 MG PO (10:43)
[2018-04-19] MEDS ORDERED: POTASSIUM CHLO20 ME3 PO (10:44)
[2018-04-19] MEDS ORDERED: VITAMIN D31000 UNIT PO (10:45)
[2018-04-19] MEDS ORDERED: FLOVENT HFA12 GM INH (10:47)
[2018-04-19] MEDS ORDERED: STIOLTO RESPIMAT4 GM INH (10:48)
[2018-04-23] MEDS ORDERED: PREDNISONE10 MG PO (07:46)
[2018-04-23] MEDS ORDERED: DOXYCYCLINE100 M3 PO (07:46)
[2018-04-23] MEDS ORDERED: LASIX40 MG PO (07:46)
[2018-04-23] MEDS ORDERED: PRINIVIL10 MG PO (07:47)
[2018-05-08 09:12] LABS: ACID FAST CULTURE Negative (.)
== END 2018-03-29 12:19 | disposition home health service (06) | DRG 871 ==
LOC: 4E 12:47 → EDHOLD 12:47 → 4E 12:57
PROVIDERS: Internal Medicine; Internal Medicine Critical Care Medicine; Student in an Organized Health Care Education/Training Program; ADMIT Internal Medicine
PROC: 0BC88ZZ Extirpation of Matter from Left Upper Lobe Bronchus, Via Natural or Artificial Opening Endoscopic (ICD-10-PCS; principal; 2018-03-27)
PROC: 0BC18ZZ Extirpation of Matter from Trachea, Via Natural or Artificial Opening Endoscopic (ICD-10-PCS; principal; 2018-03-27)
PROC: 0BC58ZZ Extirpation of Matter from Right Middle Lobe Bronchus, Via Natural or Artificial Opening Endoscopic (ICD-10-PCS; principal; 2018-03-27)
PROC: 0BC38ZZ Extirpation of Matter from Right Main Bronchus, Via Natural or Artificial Opening Endoscopic (ICD-10-PCS; principal; 2018-03-27)
PROC: 0BC28ZZ Extirpation of Matter from Carina, Via Natural or Artificial Opening Endoscopic (ICD-10-PCS; principal; 2018-03-27)
PROC: 0BC98ZZ Extirpation of Matter from Lingula Bronchus, Via Natural or Artificial Opening Endoscopic (ICD-10-PCS; principal; 2018-03-27)
PROC: 0BCB8ZZ Extirpation of Matter from Left Lower Lobe Bronchus, Via Natural or Artificial Opening Endoscopic (ICD-10-PCS; principal; 2018-03-27)
PROC: 0BC78ZZ Extirpation of Matter from Left Main Bronchus, Via Natural or Artificial Opening Endoscopic (ICD-10-PCS; principal; 2018-03-27)
PROC: 0BC68ZZ Extirpation of Matter from Right Lower Lobe Bronchus, Via Natural or Artificial Opening Endoscopic (ICD-10-PCS; principal; 2018-03-27)
PROC: 0BC48ZZ Extirpation of Matter from Right Upper Lobe Bronchus, Via Natural or Artificial Opening Endoscopic (ICD-10-PCS; principal; 2018-03-27)
PROC: 5A09357 Assistance with Respiratory Ventilation, Less than 24 Consecutive Hours, Continuous Positive Airway Pressure (ICD-10-PCS; 2018-03-29)
DX: A41.9 Sepsis, unspecified organism (principal); J18.9 Pneumonia, unspecified organism; J44.1 Chronic obstructive pulmonary disease with (acute) exacerbation; E44.0 Moderate protein-calorie malnutrition; I50.32 Chronic diastolic (congestive) heart failure; J44.0 Chronic obstructive pulmonary disease with (acute) lower respiratory infection; T17.590A Other foreign object in bronchus causing asphyxiation, initial encounter; I13.0 Hypertensive heart and chronic kidney disease with heart failure and stage 1 through stage 4 chronic kidney disease, or unspecified chronic kidney disease; R04.2 Hemoptysis; J98.11 Atelectasis; Z68.41 Body mass index [BMI] 40.0-44.9, adult; D64.9 Anemia, unspecified; D72.810 Lymphocytopenia; R73.9 Hyperglycemia, unspecified; E66.01 Morbid (severe) obesity due to excess calories; N18.3 Chronic kidney disease, stage 3 (moderate); J20.8 Acute bronchitis due to other specified organisms; R65.20 Severe sepsis without septic shock; X58.XXXA Exposure to other specified factors, initial encounter; Y93.89 Activity, other specified; Y92.89 Other specified places as the place of occurrence of the external cause; Y99.8 Other external cause status; Z82.49 Family history of ischemic heart disease and other diseases of the circulatory system; Z88.0 Allergy status to penicillin; Z79.1 Long term (current) use of non-steroidal anti-inflammatories (NSAID); Z79.899 Other long term (current) drug therapy; Z90.710 Acquired absence of both cervix and uterus; Z98.51 Tubal ligation status

== ENCOUNTER 2018-04-16 17:49 | Emergency (ER) | payer OTHER ==
--- NOTE | ~2018-04-16 | EKG ---
[place], [place] ELECTROCARDIOGRAM REPORT NAME: DAVID MUNOZ UNIT #: [id number] ROOM: DOCTOR: GLENYS DRAFT REPORT BIRTHDATE: [birth year] [facility] Test Date: 2018-04-16 Test Time: 20:49:55 Pat Name: DAVID MUNOZ Department: Room: [facility] [place] [facility] Gender: F Flat Drier: : 1965 Requested By: JUNI STEPHENS Order Number: [id number] Reading MD: Measurements Intervals [place] Rate: 66 P: 37 ND: 149 QRS: -30 QRSD: 108 T: -6 QT: 367 QTc: 385 Interpretive Statements Sinus rhythm Left axis deviation Low voltage, precordial leads Borderline T abnormalities, inferior leads Compared to ECG 03/26/2018 15:06:11 Low QRS voltage now present T-wave abnormality now present Sinus tachycardia no longer present CM:EKGRPT:ELECTROCARDIOGRAM REPORT [id number] JUNI BLACKBURN DRAFT REPORT
--- NOTE | ~2018-04-16 | EKG ---
[place], [place] ELECTROCARDIOGRAM REPORT NAME: DAVID MUNOZ UNIT #: [id number] ROOM: DOCTOR: GLENYS DRAFT REPORT BIRTHDATE: [birth year] [facility] Test Date: 2018-04-16 Test Time: 17:57:29 Pat Name: DAVID MUNOZ Department: Room: Gender: F Tool Clerk: : 1965 Requested By: WADE PRAJAPATI Order Number: [id number] Reading MD: Measurements Intervals [place] Rate: 75 P: 27 IA: 149 QRS: -38 QRSD: 110 T: 0 QT: 363 QTc: 406 Interpretive Statements Sinus rhythm Left axis deviation Low voltage, precordial leads Consider anterior infarct Borderline T abnormalities, inferior leads Baseline wander in lead(s) I,III,aVL Compared to ECG 03/26/2018 15:06:11 Low QRS voltage now present Myocardial infarct finding now present T-wave abnormality now present Sinus tachycardia no longer present CM:EKGRPT:ELECTROCARDIOGRAM REPORT [id number] WADE VERONICA DRAFT REPORT WADE PRAJAPATI MD
[~2018-04-16 17:49] MED LIST changes: +SEPTDS PO
[2018-04-16 18:23] LABS: BASO % 0.5 % (0.0-1.0); EOS # 0.3 10*3/uL (0.0-0.4); EOS % 5.7 % (1.0-4.0); HEMOGLOBIN 9.1 g/dl (12.0-16.0); LYMPH # 1.5 10*3/uL (1.3-4.4); LYMPH % 26.9 % (27.0-41.0); MEAN CELL VOLUME 91.8 fl (81.0-99.0); MEAN CORPUSCULAR HGB 28.8 pg (27.0-31.0); MEAN CORPUSCULAR HGB CONC 31.4 g/dl (33.0-37.0); MEAN PLATELET VOLUME 10.8 fl (9.6-12.3); MONO # 0.4 10*3/uL (0.1-1.0); MONO % 7.8 % (3.0-9.0); NEUT # 3.3 10*3/uL (2.3-7.9); NEUT % 58.7 % (47.0-73.0); PLATELET COUNT AUTOMATED 174 10*3/uL (130-400); RED BLOOD COUNT 3.16 10*6/uL (4.10-5.10); RED CELL DISTRI WIDTH 15.7 % (0-14.5); WHITE BLOOD COUNT 5.6 10*3/uL (4.8-10.8)
[2018-04-16 18:34] LABS: ACT PARTIAL THROMBO TIME 22.1 SECONDS (20.8-31.5); INTERNATIONAL NORM RATIO 0.9 (2.0-3.5)
[2018-04-16 18:41] LABS: ABG BASE EXCESS -0.9 mmol/L (-2.0-2.0); ABG HCO3 24.6 mmol/l (22-26); ABG O2 SATURATION 98.1 % (95-97); ARTERIAL BLOOD GAS PCO2 48.3 mmHg (35-45); ARTERIAL BLOOD GAS PH 7.328 (7.35-7.45)
[2018-04-16 18:42] LABS: ALBUMIN 3.1 gm/dl (3.1-4.5); ALKALINE PHOSPHATASE 75 U/L (45-117); BUN 49 mg/dl (7-24); CHLORIDE 106 mmol/L (98-107); CREATININE 1.93 mg/dL (0.55-1.02); POTASSIUM 4.5 mmol/L (3.5-5.1); SGOT/AST 8 IU/L (3-35); SGPT/ALT 23 U/L (12-78); SODIUM 140 mmol/L (136-145); TOTAL PROTEIN 6.3 gm/dL (6.4-8.2)
[2018-04-16 18:43] LABS: TROPONIN I < 0.015 ng/ml (<0.045)
[2018-04-19] MEDS ORDERED: HYDRALAZINE10 MG PO ×2 (10:38→10:40)
[2018-04-19] MEDS ORDERED: LASIX20 MG PO (10:41)
[2018-04-19] MEDS ORDERED: LASIX40 MG PO (10:41)
[2018-04-19] MEDS ORDERED: TOPAMAX50 MG PO (10:43)
[2018-04-19] MEDS ORDERED: POTASSIUM CHLO20 ME3 PO (10:44)
[2018-04-19] MEDS ORDERED: VITAMIN D31000 UNIT PO (10:45)
[2018-04-19] MEDS ORDERED: FLOVENT HFA12 GM INH (10:47)
[2018-04-19] MEDS ORDERED: STIOLTO RESPIMAT4 GM INH (10:48)
[2018-04-23] MEDS ORDERED: DOXYCYCLINE100 M3 PO (07:46)
[2018-04-23] MEDS ORDERED: PREDNISONE10 MG PO (07:46)
[2018-04-23] MEDS ORDERED: LASIX40 MG PO (07:46)
[2018-04-23] MEDS ORDERED: PRINIVIL10 MG PO (07:47)
== END 2018-04-16 20:42 | disposition admitted as inpatient to this hospital (09) ==
LOC: ED 17:49
PROVIDERS: Emergency Medicine
DX: I13.0 Hypertensive heart and chronic kidney disease with heart failure and stage 1 through stage 4 chronic kidney disease, or unspecified chronic kidney disease (principal); N18.9 Chronic kidney disease, unspecified; I50.32 Chronic diastolic (congestive) heart failure; J44.1 Chronic obstructive pulmonary disease with (acute) exacerbation; I95.9 Hypotension, unspecified; E66.01 Morbid (severe) obesity due to excess calories; Z87.891 Personal history of nicotine dependence; Z88.0 Allergy status to penicillin; Z79.899 Other long term (current) drug therapy

== ENCOUNTER → 2018-04-24 | Day surgery (SDC) | payer OTHER ==
[~2018-04-24] MED LIST changes: +FLOVENT HFA12 GM INH; +LASIX20 MG PO; +POTASSIUM CHLO20 ME3 PO; +PRINIVIL10 MG PO; +STIOLTO RESPIMAT4 GM INH; +TOPAMAX50 MG PO; +TYLENOL W/CODEI1 TA4 PO; +VITAMIN D31000 UNIT PO
== END | disposition home or self-care (01) ==
LOC: SDC 04-19 10:15
DX: R11.0 Nausea (principal); Z53.8 Procedure and treatment not carried out for other reasons; D64.9 Anemia, unspecified

== ENCOUNTER 2018-06-01 01:19 | Emergency (ER) | payer OTHER ==
[~2018-06-01] VITALS: Ht 165.1 cm; Wt 121.6 kg
[~2018-06-01 01:19] MED LIST changes: -TYLENOL W/CODEI1 TA4 PO
[2018-06-01] MEDS ORDERED: TYLENOL W/CODEI1 TA4 PO (01:32)
== END 2018-06-01 01:40 | disposition home or self-care (01) ==
LOC: ED 01:19
DX: M25.562 Pain in left knee (principal); G89.29 Other chronic pain; R50.9 Fever, unspecified; M17.12 Unilateral primary osteoarthritis, left knee; I12.9 Hypertensive chronic kidney disease with stage 1 through stage 4 chronic kidney disease, or unspecified chronic kidney disease; N18.9 Chronic kidney disease, unspecified; Z88.0 Allergy status to penicillin; Z79.2 Long term (current) use of antibiotics; Z79.899 Other long term (current) drug therapy; Z90.710 Acquired absence of both cervix and uterus; Z87.891 Personal history of nicotine dependence

== ENCOUNTER → 2018-09-13 | Outpatient (CLI) | payer OTHER ==
[~2018-09-13] MED LIST changes: +TYLENOL W/CODEI1 TA4 PO
[2018-09-13 14:45] LABS: CREATININE 1.24 mg/dL (0.55-1.02); POTASSIUM 3.8 mmol/L (3.5-5.1)
== END | disposition home or self-care (01) ==
LOC: LAB 14:02
PROVIDERS: Internal Medicine Nephrology
DX: I12.9 Hypertensive chronic kidney disease with stage 1 through stage 4 chronic kidney disease, or unspecified chronic kidney disease (principal); N18.9 Chronic kidney disease, unspecified

== ENCOUNTER → 2019-01-13 | Outpatient (CLI) | payer OTHER ==
[2019-01-13 12:42] LABS: BASO % 0.3 % (0.0-1.0); HEMATOCRIT 39.2 % (37.0-47.0); HEMOGLOBIN 11.9 g/dl (12.0-16.0); LYMPH # 1.5 10*3/uL (1.3-4.4); LYMPH % 21.1 % (27.0-41.0); MEAN CELL VOLUME 85.4 fl (81.0-99.0); MEAN CORPUSCULAR HGB 25.9 pg (27.0-31.0); MEAN CORPUSCULAR HGB CONC 30.4 g/dl (33.0-37.0); MEAN PLATELET VOLUME 10.9 fl (9.6-12.3); MONO # 0.4 10*3/uL (0.1-1.0); MONO % 5.5 % (3.0-9.0); NEUT # 5.1 10*3/uL (2.3-7.9); NEUT % 72.8 % (47.0-73.0); PLATELET COUNT AUTOMATED 248 10*3/uL (130-400); RED BLOOD COUNT 4.59 10*6/uL (4.10-5.10); RED CELL DISTRI WIDTH 15.5 % (0-14.5)
[2019-01-13 12:58] LABS: BUN 28 mg/dl (7-24); CHLORIDE 105 mmol/L (98-107); CREATININE 1.04 mg/dL (0.55-1.02); PHOSPHOROUS 3.5 mg/dL (2.5-4.9); POTASSIUM 3.9 mmol/L (3.5-5.1); SODIUM 139 mmol/L (136-145); URIC ACID 5.1 mg/dL (2.6-6.0)
[2019-01-13 13:30] LABS: BILIRUBIN NEGATIVE (NEGATIVE); BLOOD NEGATIVE (NEGATIVE); CLARITY CLEAR (CLEAR); COLOR YELLOW (YELLOW); GLUCOSE NEGATIVE (NEGATIVE); KETONE NEGATIVE (NEGATIVE); LEUKO ESTERASE NEGATIVE (NEGATIVE); NITRITE NEGATIVE (NEGATIVE); PH 5.5 (5.0-9.0); UROBILINOGEN 0.2 E.U./dl (0.2-1.0)
[2019-01-13 13:38] LABS: EPITHELIAL CELLS 0-2; WBC 0-2 wbc/hpf (0-5)
[2019-01-13 16:05] LABS: PTH INTACT 48.3 pg/mL (18.5-88.0); VITAMIN D, 25-HYDROXY 22.3 ng/mL (30-100)
[2019-01-14 12:09] LABS: CREATININE,URINE 15.4 mg/dL (Not Estab.); MICRO ALBUMIN/CRE RATIO <19.5 (0.0-30.0)
== END | disposition home or self-care (01) ==
LOC: LAB 12:02
PROVIDERS: Internal Medicine Nephrology
DX: I70.1 Atherosclerosis of renal artery (principal); E55.9 Vitamin D deficiency, unspecified; E87.70 Fluid overload, unspecified; R80.9 Proteinuria, unspecified; I12.9 Hypertensive chronic kidney disease with stage 1 through stage 4 chronic kidney disease, or unspecified chronic kidney disease; N18.3 Chronic kidney disease, stage 3 (moderate)

== ENCOUNTER → 2019-02-05 | Outpatient (CLI) | payer OTHER | END | disposition home or self-care (01) | LOC: US 10:20 | DX: N26.1 Atrophy of kidney (terminal) (principal); I12.9 Hypertensive chronic kidney disease with stage 1 through stage 4 chronic kidney disease, or unspecified chronic kidney disease; N18.3 Chronic kidney disease, stage 3 (moderate) ==

== ENCOUNTER 2020-03-26 11:53 | Emergency (ER) | payer OTHER ==
[~2020-03-26] VITALS: Ht 160 cm; Wt 106.6 kg
[2020-03-26 12:02] VITALS: BP 130/66
[2020-03-26 12:28] LABS: BASO % 0.4 % (0.0-1.0); HEMATOCRIT 31.5 % (37.0-47.0); LYMPH % 18.5 % (27.0-41.0); MEAN CELL VOLUME 89.2 fl (81.0-99.0); MEAN CORPUSCULAR HGB 26.3 pg (27.0-31.0); MEAN CORPUSCULAR HGB CONC 29.5 g/dl (33.0-37.0); MEAN PLATELET VOLUME 10.1 fl (9.6-12.3); MONO # 0.4 10*3/uL (0.1-1.0); MONO % 7.2 % (3.0-9.0); NEUT % 73.7 % (47.0-73.0); PLATELET COUNT AUTOMATED 237 10*3/uL (130-400); RED BLOOD COUNT 3.53 10*6/uL (4.10-5.10); RED CELL DISTRI WIDTH 14.6 % (0-14.5); WHITE BLOOD COUNT 5.5 10*3/uL (4.8-10.8)
[2020-03-26 12:38] LABS: ACT PARTIAL THROMBO TIME 27.4 SECONDS (20.0-32.1)
[2020-03-26 12:44] LABS: ALBUMIN 3.4 gm/dl (3.1-4.5); ALKALINE PHOSPHATASE 126 U/L (45-117); BUN 25 mg/dl (7-24); CHLORIDE 104 mmol/L (98-107); CREATININE 1.17 mg/dL (0.55-1.02); POTASSIUM 4.2 mmol/L (3.5-5.1); SGOT/AST 6 IU/L (3-35); SGPT/ALT 11 U/L (12-78); SODIUM 137 mmol/L (136-145); TOTAL PROTEIN 7.9 gm/dL (6.4-8.2)
[2020-03-26 12:45] LABS: TROPONIN I < 0.015 ng/ml (<0.045)
[2020-03-26 14:57] VITALS: BP 128/77
[2020-03-26] MEDS ORDERED: CARVEDILOL6.25 MG PO (17:35)
[2020-03-26] MEDS ORDERED: BUPRENORPHINE1 EAC2 TD (17:36)
== END 2020-03-26 16:51 | disposition admitted as inpatient to this hospital (09) ==
LOC: ED 11:53 → EDHOLD 14:43 → ED 16:51
PROVIDERS: Nurse Practitioner Family
DX: I50.9 Heart failure, unspecified (principal); Z88.0 Allergy status to penicillin; Z79.899 Other long term (current) drug therapy; Z87.891 Personal history of nicotine dependence

== ENCOUNTER 2020-03-26 14:49 | Observation (INO) | payer OTHER ==
[~2020-03-26] VITALS: Ht 154.9 cm; Wt 102.1 kg
[2020-03-26 15:40] VITALS: BP 136/69
[2020-03-26 16:00] VITALS: BP 136/69
[2020-03-26] MEDS ORDERED: CARVEDILOL6.25 MG PO (17:35)
[2020-03-26] MEDS ORDERED: BUPRENORPHINE1 EAC2 TD (17:36)
[2020-03-26 20:00] VITALS: BP 124/64
[2020-03-27] VITALS: BP 93/52
[2020-03-27 06:53] LABS: BASO % 0.5 % (0.0-1.0); EOS # 0.1 10*3/uL (0.0-0.4); EOS % 2.4 % (1.0-4.0); HEMATOCRIT 29.6 % (37.0-47.0); LYMPH # 1.4 10*3/uL (1.3-4.4); LYMPH % 25.9 % (27.0-41.0); MEAN CELL VOLUME 89.4 fl (81.0-99.0); MEAN CORPUSCULAR HGB 26.9 pg (27.0-31.0); MEAN CORPUSCULAR HGB CONC 30.1 g/dl (33.0-37.0); MEAN PLATELET VOLUME 10.4 fl (9.6-12.3); MONO # 0.5 10*3/uL (0.1-1.0); MONO % 8.9 % (3.0-9.0); NEUT # 3.4 10*3/uL (2.3-7.9); NEUT % 61.9 % (47.0-73.0); PLATELET COUNT AUTOMATED 246 10*3/uL (130-400); RED BLOOD COUNT 3.31 10*6/uL (4.10-5.10); RED CELL DISTRI WIDTH 14.7 % (0-14.5); WHITE BLOOD COUNT 5.5 10*3/uL (4.8-10.8)
[2020-03-27 07:07] LABS: ALBUMIN 3.2 gm/dl (3.1-4.5); CREATININE 1.3 mg/dL (0.55-1.02); FREE T4 1.34 ng/dl (0.76-1.46); POTASSIUM 3.7 mmol/L (3.5-5.1); TOTAL PROTEIN 7.8 gm/dL (6.4-8.2)
[2020-03-27 07:12] LABS: THYROID STIM HORMONE (HS) 2.14 uIU/ml (0.358-4.75)
[2020-03-27 07:50] LABS: VITAMIN D, 25-HYDROXY 25.5 ng/mL (30-100)
[2020-03-27 08:00] VITALS: BP 109/54
[2020-03-27 12:00] VITALS: BP 109/56
[2020-03-27 16:00] VITALS: BP 121/56
[2020-03-27 20:00] VITALS: BP 104/50
[2020-03-28] VITALS: BP 107/45
[2020-03-28 06:14] LABS: BASO % 0.5 % (0.0-1.0); EOS # 0.1 10*3/uL (0.0-0.4); EOS % 2.2 % (1.0-4.0); HEMATOCRIT 29.4 % (37.0-47.0); LYMPH # 1.5 10*3/uL (1.3-4.4); LYMPH % 23.8 % (27.0-41.0); MEAN CELL VOLUME 87.5 fl (81.0-99.0); MEAN CORPUSCULAR HGB 26.2 pg (27.0-31.0); MEAN CORPUSCULAR HGB CONC 29.9 g/dl (33.0-37.0); MEAN PLATELET VOLUME 9.8 fl (9.6-12.3); MONO # 0.6 10*3/uL (0.1-1.0); MONO % 9.1 % (3.0-9.0); NEUT # 4.2 10*3/uL (2.3-7.9); NEUT % 64.1 % (47.0-73.0); PLATELET COUNT AUTOMATED 228 10*3/uL (130-400); RED BLOOD COUNT 3.36 10*6/uL (4.10-5.10); RED CELL DISTRI WIDTH 14.7 % (0-14.5); WHITE BLOOD COUNT 6.5 10*3/uL (4.8-10.8)
[2020-03-28 06:49] LABS: CREATININE 1.52 mg/dL (0.55-1.02); POTASSIUM 3.6 mmol/L (3.5-5.1)
[2020-03-28 08:00] VITALS: BP 114/60
[2020-03-28 12:00] VITALS: BP 100/49
[2020-03-28 16:00] VITALS: BP 115/59
== END 2020-03-28 17:57 | disposition home or self-care (01) ==
LOC: 5E 14:49 → EDHOLD 14:49 → 5E 14:54
PROVIDERS: Internal Medicine; Registered Nurse; ADMIT Family Medicine; ATTEND Family Medicine
DX: R07.89 Other chest pain (principal); E44.0 Moderate protein-calorie malnutrition; J44.1 Chronic obstructive pulmonary disease with (acute) exacerbation; J96.11 Chronic respiratory failure with hypoxia; G35 Multiple sclerosis; I13.0 Hypertensive heart and chronic kidney disease with heart failure and stage 1 through stage 4 chronic kidney disease, or unspecified chronic kidney disease; N18.31 Chronic kidney disease, stage 3a; I50.33 Acute on chronic diastolic (congestive) heart failure; Z98.890 Other specified postprocedural states; Z87.891 Personal history of nicotine dependence; Z99.81 Dependence on supplemental oxygen; Z90.710 Acquired absence of both cervix and uterus

== ENCOUNTER 2020-11-30 10:47 | Emergency (ER) | payer OTHER ==
[~2020-11-30] VITALS: Ht 157.4 cm; Wt 108.0 kg
[~2020-11-30 10:47] MED LIST changes: +BUPRENORPHINE1 EAC2 TD; +CARVEDILOL6.25 MG PO
[2020-11-30 13:48] LABS: BASO % 0.5 % (0.0-1.0); EOS # 0.2 10*3/uL (0.0-0.4); EOS % 2.7 % (1.0-4.0); HEMATOCRIT 34.3 % (37.0-47.0); LYMPH # 1.5 10*3/uL (1.3-4.4); LYMPH % 18.5 % (27.0-41.0); MEAN CELL VOLUME 90.3 fl (81.0-99.0); MEAN CORPUSCULAR HGB 26.1 pg (27.0-31.0); MEAN CORPUSCULAR HGB CONC 28.9 g/dl (33.0-37.0); MEAN PLATELET VOLUME 9.7 fl (9.6-12.3); MONO # 0.5 10*3/uL (0.1-1.0); MONO % 6.1 % (3.0-9.0); NEUT # 5.6 10*3/uL (2.3-7.9); NEUT % 71.8 % (47.0-73.0); PLATELET COUNT AUTOMATED 288 10*3/uL (130-400); RED CELL DISTRI WIDTH 15.2 % (0-14.5); WHITE BLOOD COUNT 7.8 10*3/uL (4.8-10.8)
[2020-11-30 14:03] LABS: ALBUMIN 3.4 gm/dl (3.1-4.5); ALKALINE PHOSPHATASE 122 U/L (45-117); BUN 26 mg/dl (7-24); CHLORIDE 104 mmol/L (98-107); CPK 18 U/L (26-192); CREATININE 0.91 mg/dL (0.55-1.02); POTASSIUM 4.2 mmol/L (3.5-5.1); SGOT/AST 5 IU/L (3-35); SGPT/ALT 15 U/L (12-78); SODIUM 137 mmol/L (136-145); TOTAL PROTEIN 7.7 gm/dL (6.4-8.2)
[2020-11-30 14:13] LABS: TROPONIN I < 0.015 ng/ml (<0.045)
[2020-11-30] MEDS ORDERED: AVPAK AZITHROM250 MG PO (14:25)
== END 2020-11-30 14:39 | disposition home or self-care (01) ==
LOC: ED 10:47
PROVIDERS: Emergency Medicine
DX: J18.9 Pneumonia, unspecified organism (principal); Z20.822 Contact with and (suspected) exposure to COVID-19; E66.9 Obesity, unspecified; J44.9 Chronic obstructive pulmonary disease, unspecified; F32.9 Major depressive disorder, single episode, unspecified; F41.9 Anxiety disorder, unspecified; I11.0 Hypertensive heart disease with heart failure; I50.32 Chronic diastolic (congestive) heart failure; E66.01 Morbid (severe) obesity due to excess calories; E44.0 Moderate protein-calorie malnutrition; Z87.891 Personal history of nicotine dependence; Z88.0 Allergy status to penicillin; Z79.899 Other long term (current) drug therapy; Z90.711 Acquired absence of uterus with remaining cervical stump; Z98.51 Tubal ligation status

== ENCOUNTER 2022-01-27 12:41 | Emergency (ER) | payer OTHER ==
[~2022-01-27] VITALS: Ht 165.1 cm; Wt 98.4 kg
[~2022-01-27 12:41] MED LIST changes: +AVPAK AZITHROM250 MG PO
[2022-01-27 13:46] LABS: ABG BASE EXCESS 0.6 mmol/L (-2.0-2.0); ARTERIAL BLOOD GAS PH 7.393 (7.35-7.45); ARTERIAL BLOOD GAS PO2 84.8 (80-90)
[2022-01-27 14:01] LABS: BASO % 0.6 % (0.0-1.0); EOS # 0.1 10*3/uL (0.0-0.4); EOS % 1.6 % (1.0-4.0); HEMATOCRIT 29.7 % (37.0-47.0); LYMPH % 14.4 % (27.0-41.0); MEAN CELL VOLUME 86.6 fl (81.0-99.0); MEAN CORPUSCULAR HGB 25.9 pg (27.0-31.0); MEAN PLATELET VOLUME 10.2 fl (9.6-12.3); MONO # 0.5 10*3/uL (0.1-1.0); MONO % 6.3 % (3.0-9.0); NEUT # 5.5 10*3/uL (2.3-7.9); NEUT % 76.8 % (47.0-73.0); PLATELET COUNT AUTOMATED 271 10*3/uL (130-400); RED BLOOD COUNT 3.43 10*6/uL (4.10-5.10); RED CELL DISTRI WIDTH 15.3 % (0-14.5); WHITE BLOOD COUNT 7.1 10*3/uL (4.8-10.8)
[2022-01-27 14:05] LABS: CREATININE 1.24 mg/dL (0.55-1.02); POTASSIUM 4.2 mmol/L (3.5-5.1); TOTAL PROTEIN 7.9 gm/dL (6.4-8.2)
[2022-01-27 14:12] LABS: ACT PARTIAL THROMBO TIME 27.4 SECONDS (20.0-32.1); INTERNATIONAL NORM RATIO 1.1 (2.0-3.5)
[2022-01-27] MEDS ORDERED: PAXLOVID 150-11 EAC1 PO (17:23)
== END 2022-01-27 17:27 | disposition home or self-care (01) ==
LOC: ED 12:41
PROVIDERS: Family Medicine
DX: U07.1 COVID-19 (principal); Z88.0 Allergy status to penicillin; Z79.899 Other long term (current) drug therapy; Z90.710 Acquired absence of both cervix and uterus; Z98.51 Tubal ligation status; Z87.891 Personal history of nicotine dependence

== ENCOUNTER → 2022-08-17 | Outpatient (CLI) | payer OTHER ==
[~2022-08-17] MED LIST changes: +PAXLOVID 150-11 EAC1 PO
[2022-08-17 16:34] LABS: BASO # 0.1 10*3/uL (0.0-0.1); BASO % 0.8 % (0.0-1.0); EOS # 0.3 10*3/uL (0.0-0.4); EOS % 4.3 % (1.0-4.0); HEMATOCRIT 32.7 % (37.0-47.0); LYMPH # 1.5 10*3/uL (1.3-4.4); MEAN CELL VOLUME 89.1 fl (81.0-99.0); MEAN CORPUSCULAR HGB 26.2 pg (27.0-31.0); MEAN CORPUSCULAR HGB CONC 29.4 g/dl (33.0-37.0); MEAN PLATELET VOLUME 9.9 fl (9.6-12.3); MONO # 0.5 10*3/uL (0.1-1.0); MONO % 7.4 % (3.0-9.0); NEUT # 4.2 10*3/uL (2.3-7.9); NEUT % 64.3 % (47.0-73.0); PLATELET COUNT AUTOMATED 309 10*3/uL (130-400); RED BLOOD COUNT 3.67 10*6/uL (4.10-5.10); RED CELL DISTRI WIDTH 15.5 % (0-14.5); WHITE BLOOD COUNT 6.5 10*3/uL (4.8-10.8)
== END | disposition home or self-care (01) ==
LOC: LAB 16:14
PROVIDERS: ATTEND Internal Medicine Critical Care Medicine
DX: Z79.899 Other long term (current) drug therapy (principal)

== ENCOUNTER → 2023-05-07 | Outpatient (CLI) | payer OTHER ==
[2023-05-07 18:24] LABS: BASO % 0.6 % (0.0-1.0); EOS # 0.3 10*3/uL (0.0-0.4); EOS % 4.1 % (1.0-4.0); HEMATOCRIT 34.2 % (37.0-47.0); LYMPH # 1.3 10*3/uL (1.3-4.4); LYMPH % 19.3 % (27.0-41.0); MEAN CORPUSCULAR HGB 27.2 pg (27.0-31.0); MEAN CORPUSCULAR HGB CONC 28.9 g/dl (33.0-37.0); MEAN PLATELET VOLUME 10.8 fl (9.6-12.3); MONO # 0.4 10*3/uL (0.1-1.0); NEUT # 4.6 10*3/uL (2.3-7.9); NEUT % 69.8 % (47.0-73.0); PLATELET COUNT AUTOMATED 206 10*3/uL (130-400); RED BLOOD COUNT 3.64 10*6/uL (4.10-5.10); RED CELL DISTRI WIDTH 15.4 % (0-14.5); WHITE BLOOD COUNT 6.6 10*3/uL (4.8-10.8)
[2023-05-07 18:46] LABS: ALKALINE PHOSPHATASE 152 U/L (46-116); BUN 33 mg/dl (9-23); CHLORIDE 105 mmol/L (98-107); CHOLESTEROL 156 mg/dL (<200); LDL CHOLESTEROL 66 mg/dL (9-159); POTASSIUM 4.6 mmol/L (3.4-5.1); TOTAL PROTEIN 7.3 gm/dL (6.0-8.0); URIC ACID 4.9 mg/dL (3.1-7.8)
[2023-05-07 18:47] LABS: SGPT/ALT < 7 U/L (5-49)
[2023-05-07 18:48] LABS: VITAMIN D, 25-HYDROXY 28.3 ng/mL (30-100)
== END | disposition home or self-care (01) ==
LOC: LAB 17:53
PROVIDERS: ATTEND Internal Medicine Nephrology
DX: N18.32 Chronic kidney disease, stage 3b (principal); N25.81 Secondary hyperparathyroidism of renal origin; R80.9 Proteinuria, unspecified; D63.1 Anemia in chronic kidney disease; E78.5 Hyperlipidemia, unspecified

== ENCOUNTER 2024-01-15 18:22 | Inpatient (IN) | payer OTHER ==
[~2024-01-15] VITALS: Ht 165.1 cm; Wt 114.4 kg
[2024-01-15 18:35] VITALS: BP 86/43
[2024-01-15] MEDS ORDERED: SODIUM CHLORIDE 0.9% 1,000 ML IV ONE (18:50)
[2024-01-15 19:27] LABS: BASO # 0.1 10*3/uL (0.0-0.1); BASO % 0.6 % (0.0-1.0); EOS # 0.2 10*3/uL (0.0-0.4); EOS % 2.5 % (1.0-4.0); HEMATOCRIT 30.5 % (37.0-47.0); MEAN CELL VOLUME 98.1 fl (81.0-99.0); MEAN CORPUSCULAR HGB 28.6 pg (27.0-31.0); MEAN CORPUSCULAR HGB CONC 29.2 g/dl (33.0-37.0); MEAN PLATELET VOLUME 11.6 fl (9.6-12.3); MONO # 0.4 10*3/uL (0.1-1.0); MONO % 4.7 % (3.0-9.0); NEUT # 5.7 10*3/uL (2.3-7.9); NEUT % 71.8 % (47.0-73.0); PLATELET COUNT AUTOMATED 162 10*3/uL (130-400); RED BLOOD COUNT 3.11 10*6/uL (4.10-5.10); RED CELL DISTRI WIDTH 15.9 % (0-14.5); WHITE BLOOD COUNT 7.9 10*3/uL (4.8-10.8)
[2024-01-15] MEDS ORDERED: Ceftriaxone Sodium 1 GM/10 ML SYR IV ONE (19:35)
[2024-01-15] MEDS ORDERED: Doxycycline Hyclate 100 MG CAP PO ONE (19:40)
[2024-01-15 19:48] LABS: TOTAL PROTEIN 6.5 gm/dL (6.0-8.0)
[2024-01-15] MEDS ORDERED: Oseltamivir Phosphate 75 MG CAP PO ONE (20:15)
[2024-01-15 20:44] LABS: BILIRUBIN Negative (Negative); BLOOD Negative (Negative); CLARITY Turbid (Clear); COLOR Yellow (Yellow); GLUCOSE Negative (Negative); KETONE Trace (Negative); LEUKO ESTERASE 3+ (Negative); NITRITE Negative (Negative); SPECIFIC GRAVITY 1.025 (1.001-1.030)
[2024-01-15] MEDS ORDERED: Magnesium Hydroxide 30 ML UDC PO PRN (20:45)
[2024-01-15] MEDS ORDERED: ACETAMINOPHEN 325 MG TAB PO PRN (20:45)
[2024-01-15] MEDS ORDERED: Ondansetron Hydrochloride 4 MG/2 ML VIAL IV PRN (20:45)
[2024-01-15] MEDS ORDERED: BUDESONIDE 0.5 MG AMP NEB SCH (20:55)
[2024-01-15 21:01] LABS: BACTERIA 1+; RBC 0-2 rbc/hpf (0-2); WBC TNTC wbc/hpf (0-5)
[2024-01-15 21:26] VITALS: BP 102/43
[2024-01-15] MEDS ORDERED: [UNRECOGNIZED DRUG - OTHER] TD SCH (21:45)
[2024-01-15] MEDS ORDERED: Albuterol Sulf/Ipratropium 3 ML VIAL NEB SCH (21:45)
[2024-01-15] MEDS ORDERED: methylPREDNISolone sod succ 40 MG VIAL IV SCH (22:00)
[2024-01-15] MEDS ORDERED: GUAIFENESIN 600 MG TAB ER PO SCH (22:00)
[2024-01-15] MEDS ORDERED: HEPARIN SODIUM 5,000 UNIT/ML VIAL SC SCH (22:00)
[2024-01-15] MEDS ORDERED: AZITHROMYCIN 250 ML IV SCH (22:00)
[2024-01-16] VITALS (7 sets, daily range): BP systolic 90–155; BP diastolic 48–74
[2024-01-16 05:20] LABS: ALKALINE PHOSPHATASE 149 U/L (46-116); BUN 36 mg/dl (9-23); CHLORIDE 107 mmol/L (98-107); POTASSIUM 3.9 mmol/L (3.4-5.1); SGPT/ALT 12 U/L (5-49); TOTAL PROTEIN 6.6 gm/dL (6.0-8.0)
[2024-01-16 06:11] LABS: BASO % 0.2 % (0.0-1.0); EOS % 0.2 % (1.0-4.0); HEMATOCRIT 30.8 % (37.0-47.0); MEAN CORPUSCULAR HGB 28.3 pg (27.0-31.0); MEAN CORPUSCULAR HGB CONC 28.6 g/dl (33.0-37.0); MEAN PLATELET VOLUME 12.1 fl (9.6-12.3); MONO % 0.5 % (3.0-9.0); NEUT # 5.8 10*3/uL (2.3-7.9); NEUT % 89.6 % (47.0-73.0); PLATELET COUNT AUTOMATED 141 10*3/uL (130-400); RED BLOOD COUNT 3.11 10*6/uL (4.10-5.10); RED CELL DISTRI WIDTH 15.7 % (0-14.5); WHITE BLOOD COUNT 6.4 10*3/uL (4.8-10.8)
[2024-01-16] MEDS ORDERED: Vitamin D 1,000 IU TAB (25 MCG) PO SCH (10:00)
[2024-01-16] MEDS ORDERED: TOPIRAMATE50 M2 PO (10:00)
[2024-01-16] MEDS ORDERED: FERROUS SULFATE 325 MG TAB PO SCH (10:00)
[2024-01-16] MEDS ORDERED: VANCOMYCIN/WATER FOR INJ (PEG) 300 ML IV SCH (10:00)
[2024-01-16] MEDS ORDERED: FUROSEMIDE 40 MG TAB PO SCH (10:00)
[2024-01-16] MEDS ORDERED: CARVEDILOL 6.25 MG TAB PO SCH (10:00)
[2024-01-16] MEDS ORDERED: Oseltamivir Phosphate 30 MG CAP PO SCH (10:00)
[2024-01-16] MEDS ORDERED: LISINOPRIL 10 MG TAB PO SCH (10:00)
[2024-01-16] MEDS ORDERED: Ceftriaxone Sodium 1 GM in SYRINGE INFUSION 10 ML IV SCH (20:00)
[2024-01-17] MEDS ORDERED: ALLOPURINOL300 MG PO (00:43)
[2024-01-17] MEDS ORDERED: MONTELUKAST SOD10 MG PO (00:44)
[2024-01-17] MEDS ORDERED: ROPINIROLE HYDRO1 MG PO (00:44)
[2024-01-17] MEDS ORDERED: TRAMADOL HCL50 MG PO (00:45)
[2024-01-17] MEDS ORDERED: FEROSUL325 M1 PO (00:46)
[2024-01-17] MEDS ORDERED: LISINOPRIL10 M1 PO (00:46)
[2024-01-17] MEDS ORDERED: ATORVASTATIN CA10 M1 PO (00:49)
[2024-01-17] MEDS ORDERED: B121000 MCG/1 IM (00:49)
[2024-01-17] MEDS ORDERED: FUROSEMIDE40 MG PO (00:50)
[2024-01-17] MEDS ORDERED: PANTOPRAZOLE SO40 MG PO (00:51)
[2024-01-17] MEDS ORDERED: SERTRALINE HYD100 MG PO (00:52)
[2024-01-17 06:40] LABS: BASO % 0.3 % (0.0-1.0); HEMATOCRIT 29.5 % (37.0-47.0); MEAN CELL VOLUME 96.7 fl (81.0-99.0); MEAN CORPUSCULAR HGB 28.9 pg (27.0-31.0); MEAN CORPUSCULAR HGB CONC 29.8 g/dl (33.0-37.0); MEAN PLATELET VOLUME 11.4 fl (9.6-12.3); MONO # 0.5 10*3/uL (0.1-1.0); MONO % 6.2 % (3.0-9.0); NEUT # 5.5 10*3/uL (2.3-7.9); NEUT % 76.1 % (47.0-73.0); PLATELET COUNT AUTOMATED 157 10*3/uL (130-400); RED BLOOD COUNT 3.05 10*6/uL (4.10-5.10); RED CELL DISTRI WIDTH 15.6 % (0-14.5); WHITE BLOOD COUNT 7.3 10*3/uL (4.8-10.8)
[2024-01-17 07:11] LABS: POTASSIUM 3.6 mmol/L (3.4-5.1)
[2024-01-17 08:00] VITALS: BP 151/77
[2024-01-17 12:00] VITALS: BP 126/76
[2024-01-17 16:00] VITALS: BP 142/72
[2024-01-17 20:00] VITALS: BP 141/66
[2024-01-17] MEDS ORDERED: NYSTATIN 15 GM BOT T SCH (22:00)
[2024-01-18] VITALS: BP 133/75
[2024-01-18 06:32] LABS: BASO % 0.2 % (0.0-1.0); EOS # 0.1 10*3/uL (0.0-0.4); EOS % 1.3 % (1.0-4.0); HEMATOCRIT 28.4 % (37.0-47.0); MEAN CELL VOLUME 96.9 fl (81.0-99.0); MEAN CORPUSCULAR HGB 28.7 pg (27.0-31.0); MEAN CORPUSCULAR HGB CONC 29.6 g/dl (33.0-37.0); MEAN PLATELET VOLUME 11.4 fl (9.6-12.3); MONO # 0.4 10*3/uL (0.1-1.0); MONO % 6.7 % (3.0-9.0); NEUT # 3.5 10*3/uL (2.3-7.9); NEUT % 64.4 % (47.0-73.0); PLATELET COUNT AUTOMATED 153 10*3/uL (130-400); RED BLOOD COUNT 2.93 10*6/uL (4.10-5.10); RED CELL DISTRI WIDTH 15.9 % (0-14.5); WHITE BLOOD COUNT 5.4 10*3/uL (4.8-10.8)
[2024-01-18 06:52] LABS: POTASSIUM 3.7 mmol/L (3.4-5.1); TOTAL PROTEIN 5.9 gm/dL (6.0-8.0)
[2024-01-18 08:00] VITALS: BP 126/72
[2024-01-18] MEDS ORDERED: Sertraline Hydrochloride 50 MG TAB PO SCH (10:00)
[2024-01-18] MEDS ORDERED: TOPIRAMATE 25 MG TAB PO SCH (10:00)
[2024-01-18] MEDS ORDERED: ALLOPURINOL 300 MG TAB PO SCH (10:00)
[2024-01-18 12:00] VITALS: BP 137/56
[2024-01-18 16:00] VITALS: BP 131/68
[2024-01-18] MEDS ORDERED: Montelukast Sodium 10 MG TAB PO SCH (18:00)
[2024-01-18] MEDS ORDERED: ATORVASTATIN CALCIUM 10 MG TAB PO SCH (18:00)
[2024-01-18 20:00] VITALS: BP 145/57
[2024-01-19] VITALS: BP 147/58
[2024-01-19 05:15] LABS: BUN 22 mg/dl (9-23); CHLORIDE 106 mmol/L (98-107); POTASSIUM 3.8 mmol/L (3.4-5.1)
[2024-01-19] MEDS ORDERED: Pantoprazole Sodium 40 MG TAB PO SCH (06:00)
[2024-01-19 06:17] LABS: BASO % 0.3 % (0.0-1.0); EOS # 0.2 10*3/uL (0.0-0.4); EOS % 2.5 % (1.0-4.0); HEMATOCRIT 30.2 % (37.0-47.0); MEAN CELL VOLUME 98.7 fl (81.0-99.0); MEAN CORPUSCULAR HGB 28.4 pg (27.0-31.0); MEAN CORPUSCULAR HGB CONC 28.8 g/dl (33.0-37.0); MEAN PLATELET VOLUME 11.4 fl (9.6-12.3); MONO # 0.5 10*3/uL (0.1-1.0); MONO % 8.1 % (3.0-9.0); NEUT # 3.9 10*3/uL (2.3-7.9); NEUT % 66.4 % (47.0-73.0); PLATELET COUNT AUTOMATED 152 10*3/uL (130-400); RED BLOOD COUNT 3.06 10*6/uL (4.10-5.10); RED CELL DISTRI WIDTH 16.1 % (0-14.5); WHITE BLOOD COUNT 5.9 10*3/uL (4.8-10.8)
[2024-01-19 08:00] VITALS: BP 127/57
[2024-01-19 12:00] VITALS: BP 128/58
[2024-01-19 16:00] VITALS: BP 125/65
[2024-01-19 20:00] VITALS: BP 135/70
[2024-01-20] VITALS: BP 129/72
[2024-01-20 08:00] VITALS: BP 122/64
[2024-01-20 12:00] VITALS: BP 124/68
[2024-01-20 16:00] VITALS: BP 103/54; BP 123/54
[2024-01-20 20:00] VITALS: BP 125/52
[2024-01-21 05:50] LABS: POTASSIUM 3.4 mmol/L (3.4-5.1)
[2024-01-21 06:17] LABS: BASO % 0.3 % (0.0-1.0); EOS # 0.2 10*3/uL (0.0-0.4); EOS % 3.7 % (1.0-4.0); HEMATOCRIT 29.2 % (37.0-47.0); MEAN CORPUSCULAR HGB 28.8 pg (27.0-31.0); MEAN CORPUSCULAR HGB CONC 30.1 g/dl (33.0-37.0); MEAN PLATELET VOLUME 11.3 fl (9.6-12.3); MONO # 0.4 10*3/uL (0.1-1.0); MONO % 6.4 % (3.0-9.0); NEUT # 3.9 10*3/uL (2.3-7.9); NEUT % 66.1 % (47.0-73.0); PLATELET COUNT AUTOMATED 141 10*3/uL (130-400); RED BLOOD COUNT 3.06 10*6/uL (4.10-5.10); RED CELL DISTRI WIDTH 15.9 % (0-14.5); WHITE BLOOD COUNT 5.9 10*3/uL (4.8-10.8)
[2024-01-21 06:50] LABS: MEAN CELL VOLUME 95.4 fl (81.0-99.0)
[2024-01-21 08:00] VITALS: BP 136/63
[2024-01-21 12:00] VITALS: BP 127/53
[2024-01-21 16:00] VITALS: BP 85/47
[2024-01-21 20:00] VITALS: BP 116/59
[2024-01-22] VITALS: BP 133/52
[2024-01-22 08:00] VITALS: BP 126/58
[2024-01-22] MEDS ORDERED: OMNICEF300 MG PO (12:27)
[2024-01-22] MEDS ORDERED: FEROSUL325 M1 PO (12:27)
[2024-01-22] MEDS ORDERED: MUCUS RELIEF E600 MG PO (12:27)
== END 2024-01-22 12:45 | disposition home or self-care (01) | DRG 177 ==
LOC: ED 18:22 → EDHOLD 20:16 → 4E 20:16
PROVIDERS: Internal Medicine; Nurse Practitioner Family; Student in an Organized Health Care Education/Training Program; ADMIT Internal Medicine; ATTEND Internal Medicine
DX: J15.69 Pneumonia due to other Gram-negative bacteria (principal); G93.41 Metabolic encephalopathy; N17.0 Acute kidney failure with tubular necrosis; J96.21 Acute and chronic respiratory failure with hypoxia; N18.4 Chronic kidney disease, stage 4 (severe); I50.32 Chronic diastolic (congestive) heart failure; I13.0 Hypertensive heart and chronic kidney disease with heart failure and stage 1 through stage 4 chronic kidney disease, or unspecified chronic kidney disease; N30.00 Acute cystitis without hematuria; J44.0 Chronic obstructive pulmonary disease with (acute) lower respiratory infection; J10.08 Influenza due to other identified influenza virus with other specified pneumonia; R53.81 Other malaise; J20.9 Acute bronchitis, unspecified; B96.20 Unspecified Escherichia coli [E. coli] as the cause of diseases classified elsewhere; N28.89 Other specified disorders of kidney and ureter; R73.9 Hyperglycemia, unspecified; D64.9 Anemia, unspecified; E66.01 Morbid (severe) obesity due to excess calories; F41.8 Other specified anxiety disorders; G35 Multiple sclerosis; M15.0 Primary generalized (osteo)arthritis; I95.0 Idiopathic hypotension; Z88.0 Allergy status to penicillin; Z90.710 Acquired absence of both cervix and uterus; Z98.51 Tubal ligation status; Z80.0 Family history of malignant neoplasm of digestive organs; Z82.49 Family history of ischemic heart disease and other diseases of the circulatory system; Z79.899 Other long term (current) drug therapy

== ENCOUNTER → 2024-03-24 | Outpatient (CLI) | payer OTHER ==
[~2024-03-24] MED LIST changes: +ALLOPURINOL300 MG PO; +ATORVASTATIN CA10 M1 PO; +B121000 MCG/1 IM; +FEROSUL325 M1 PO; +FUROSEMIDE40 MG PO; +MONTELUKAST SOD10 MG PO; +MUCUS RELIEF E600 MG PO; +OMNICEF300 MG PO; +PANTOPRAZOLE SO40 MG PO; +ROPINIROLE HYDRO1 MG PO; +SERTRALINE HYD100 MG PO; +TOPIRAMATE50 M2 PO; +TRAMADOL HCL50 MG PO
[2024-03-24 15:29] LABS: BASO % 0.6 % (0.0-1.0); EOS # 0.2 10*3/uL (0.0-0.4); EOS % 3.6 % (1.0-4.0); HEMATOCRIT 31.4 % (37.0-47.0); MEAN CELL VOLUME 96.3 fl (81.0-99.0); MEAN CORPUSCULAR HGB 27.9 pg (27.0-31.0); MEAN PLATELET VOLUME 10.6 fl (9.6-12.3); MONO # 0.4 10*3/uL (0.1-1.0); MONO % 7.1 % (3.0-9.0); NEUT # 4.4 10*3/uL (2.3-7.9); NEUT % 70.3 % (47.0-73.0); PLATELET COUNT AUTOMATED 181 10*3/uL (130-400); RED BLOOD COUNT 3.26 10*6/uL (4.10-5.10); RED CELL DISTRI WIDTH 14.6 % (0-14.5); WHITE BLOOD COUNT 6.2 10*3/uL (4.8-10.8)
[2024-03-24 15:31] LABS: BILIRUBIN Negative (Negative); BLOOD Negative (Negative); CLARITY Clear (Clear); COLOR Yellow (Yellow); GLUCOSE Negative (Negative); KETONE Negative (Negative); LEUKO ESTERASE Negative (Negative); NITRITE Negative (Negative); UROBILINOGEN 0.2 E.U./dl (0.0-1.0)
[2024-03-24 15:50] LABS: WBC 0-2 wbc/hpf (0-5)
[2024-03-24 15:56] LABS: POTASSIUM 4.4 mmol/L (3.4-5.1)
== END | disposition home or self-care (01) ==
LOC: LAB 14:37
PROVIDERS: ATTEND Nurse Practitioner Family
DX: N18.30 Chronic kidney disease, stage 3 unspecified (principal); D63.1 Anemia in chronic kidney disease

== ENCOUNTER 2024-08-15 17:05 | Emergency (ER) | payer OTHER ==
[~2024-08-15] VITALS: Ht 165.1 cm; Wt 122.5 kg
[~2024-08-15 17:05] MED LIST changes: +ALBUTEROL2.5 MG/0.5 NEB; +ASMANEX HFA13 GM INH; +BEVESPI AEROS10.7 GM INH; +CARVEDILOL12.5 MG PO; +IRON325 M1 PO; +LISINOPRIL20 MG PO; +MAGNESIUM250 M3 PO; +NEURONTIN300 MG PO; +PREDNISONE50 MG PO; +VENT7GM INH; +VITAMIN C250 M2 PO; +ZITHROMAX250 MG PO
[2024-08-15 17:44] LABS: BASO % 0.4 % (0.0-1.0); EOS # 0.2 10*3/uL (0.0-0.4); HEMATOCRIT 34.8 % (37.0-47.0); MEAN CELL VOLUME 94.3 fl (81.0-99.0); MEAN CORPUSCULAR HGB 27.4 pg (27.0-31.0); MEAN PLATELET VOLUME 9.9 fl (9.6-12.3); MONO # 0.4 10*3/uL (0.1-1.0); MONO % 7.5 % (3.0-9.0); NEUT # 3.4 10*3/uL (2.3-7.9); NEUT % 70.6 % (47.0-73.0); PLATELET COUNT AUTOMATED 193 10*3/uL (130-400); RED BLOOD COUNT 3.69 10*6/uL (4.10-5.10); RED CELL DISTRI WIDTH 16.1 % (0-14.5); WHITE BLOOD COUNT 4.8 10*3/uL (4.8-10.8)
[2024-08-15 18:12] LABS: POTASSIUM 4.9 mmol/L (3.4-5.1)
[2024-08-15] MEDS ORDERED: SODIUM CHLORIDE 0.9% 1,000 ML IV ONE (18:55)
[2024-08-15] MEDS ORDERED: PROTONIX40 MG PO (19:53)
[2024-08-15 20:53] LABS: BILIRUBIN 1+ (Negative); BLOOD 2+ (Negative); CLARITY Turbid (Clear); COLOR Dark Yellow (Yellow); GLUCOSE Negative (Negative); KETONE Trace (Negative); LEUKO ESTERASE 2+ (Negative); NITRITE Negative (Negative); PH 5.5 (4.5-8.0); SPECIFIC GRAVITY 1.025 (1.001-1.030)
[2024-08-15 21:27] LABS: BACTERIA 4+; CALCIUM OXALATE CRYSTALS Trace
[2024-08-16] MEDS ORDERED: Doxycycline Hyclate 100 MG in SODIUM CHLORIDE 0.9% 250 ML IV ONE (01:05)
[2024-08-16] MEDS ORDERED: MORPHINE Sulfate 2 MG/ML SYR IV PRN (01:10)
[2024-08-16] MEDS ORDERED: Ondansetron Hydrochloride 4 MG/2 ML VIAL IV PRN (01:10)
[2024-08-16] MEDS ORDERED: GUAIFENESIN 600 MG TAB ER PO ONE (01:10)
[2024-08-16] MEDS ORDERED: Albuterol Sulf/Ipratropium 3 ML VIAL NEB PRN (01:10)
[2024-08-16] MEDS ORDERED: methylPREDNISolone sod succ 40 MG VIAL IV SCH (10:00)
[2024-08-16] MEDS ORDERED: methylPREDNISolone sod succ 20 MG IV SCH (10:00)
[2024-08-16] MEDS ORDERED: Doxycycline Hyclate 100 MG in SODIUM CHLORIDE 0.9% 250 ML IV SCH (10:00)
[2024-08-16] MEDS ORDERED: FUROSEMIDE 40 MG/4 ML VIAL IV ONE (11:40)
[2024-08-17] MEDS ORDERED: VITRON-C TABLE1 EACH PO (15:33)
[2024-08-17] MEDS ORDERED: MAGNESIUM250 M1 PO (15:36)
[2024-08-19] MEDS ORDERED: VIBRAMYCIN100 MG PO (10:30)
[2024-08-19] MEDS ORDERED: SERTRALINE HYDR50 MG PO (10:30)
[2024-08-19] MEDS ORDERED: ZOLOFT100 MG PO (10:53)
== END 2024-08-17 11:29 | disposition admitted as inpatient to this hospital (09) ==
LOC: ED 17:05
PROVIDERS: Nurse Practitioner Family
DX: J44.1 Chronic obstructive pulmonary disease with (acute) exacerbation (principal); N17.9 Acute kidney failure, unspecified; R09.02 Hypoxemia; J98.4 Other disorders of lung; I50.9 Heart failure, unspecified; Z88.0 Allergy status to penicillin; Z79.899 Other long term (current) drug therapy; Z90.711 Acquired absence of uterus with remaining cervical stump; Z87.891 Personal history of nicotine dependence

== ENCOUNTER → 2024-09-11 | Outpatient (CLI) | payer OTHER ==
[~2024-09-11] MED LIST changes: +MAGNESIUM250 M1 PO; +PROTONIX40 MG PO; +SERTRALINE HYDR50 MG PO; +VIBRAMYCIN100 MG PO; +VITRON-C TABLE1 EACH PO; +ZOLOFT100 MG PO
[2024-09-11 16:07] LABS: BASO # 0.0 10*3/uL (0.0-0.1); BASO % 0.2 % (0.0-1.0); EOS # 0.3 10*3/uL (0.0-0.4); EOS % 4.0 % (1.0-4.0); MEAN CELL VOLUME 92.8 fl (81.0-99.0); MEAN CORPUSCULAR HGB 27.2 pg (27.0-31.0); MEAN PLATELET VOLUME 11.5 fl (9.6-12.3); MONO # 0.4 10*3/uL (0.1-1.0); MONO % 5.5 % (3.0-9.0); NEUT # 6.1 10*3/uL (2.3-7.9); NEUT % 75.8 % (47.0-73.0); NUCLEATED RED BLOOD CELL 0.0 % (0.0-0.0); NUCLEATED RED BLOOD CELL 0.0 10*3/uL (0.0-0.0); PLATELET COUNT AUTOMATED 157 10*3/uL (130-400); RED CELL DISTRI WIDTH 16.9 % (0-14.5)
[2024-09-11 16:13] LABS: BILIRUBIN Negative (Negative); BLOOD Negative (Negative); CLARITY Clear (Clear); COLOR Yellow (Yellow); KETONE Trace (Negative); LEUKO ESTERASE 1+ (Negative); NITRITE Negative (Negative); PH 5.0 (4.5-8.0); SPECIFIC GRAVITY 1.015 (1.001-1.030); UROBILINOGEN 1.0 E.U./dl (0.0-1.0)
[2024-09-11 16:29] LABS: BUN 75.0 mg/dl (9-23)
[2024-09-11 16:37] LABS: WBC 16-20 wbc/hpf (0-5)
[2024-09-11 16:38] LABS: BACTERIA 1+
[2024-09-11 17:00] LABS: VITAMIN D, 25-HYDROXY 33.5 ng/mL (30-100)
== END | disposition home or self-care (01) ==
LOC: LAB 15:41
PROVIDERS: ATTEND Nurse Practitioner Family
DX: N18.30 Chronic kidney disease, stage 3 unspecified (principal); E55.9 Vitamin D deficiency, unspecified; N25.81 Secondary hyperparathyroidism of renal origin; D63.1 Anemia in chronic kidney disease

== ENCOUNTER → 2024-10-09 | Outpatient (CLI) | payer OTHER | END | disposition home or self-care (01) | LOC: CT 10:51 | PROVIDERS: ATTEND Internal Medicine Critical Care Medicine | DX: Z12.2 Encounter for screening for malignant neoplasm of respiratory organs (principal); J43.9 Emphysema, unspecified; I25.10 Atherosclerotic heart disease of native coronary artery without angina pectoris; E04.1 Nontoxic single thyroid nodule; Z87.891 Personal history of nicotine dependence ==

== ENCOUNTER → 2024-10-13 | Outpatient (CLI) | payer OTHER ==
[2024-10-13 14:23] LABS: BASO # 0.0 10*3/uL (0.0-0.1); BASO % 0.2 % (0.0-1.0); EOS # 0.1 10*3/uL (0.0-0.4); EOS % 1.2 % (1.0-4.0); MEAN CELL VOLUME 95.8 fl (81.0-99.0); MEAN CORPUSCULAR HGB 27.5 pg (27.0-31.0); MEAN PLATELET VOLUME 9.9 fl (9.6-12.3); MONO # 0.4 10*3/uL (0.1-1.0); MONO % 6.0 % (3.0-9.0); NEUT # 4.4 10*3/uL (2.3-7.9); NEUT % 74.3 % (47.0-73.0); NUCLEATED RED BLOOD CELL 0.0 % (0.0-0.0); NUCLEATED RED BLOOD CELL 0.0 10*3/uL (0.0-0.0); PLATELET COUNT AUTOMATED 194 10*3/uL (130-400); RED CELL DISTRI WIDTH 17.2 % (0-14.5)
== END | disposition home or self-care (01) ==
LOC: LAB 13:46
PROVIDERS: ATTEND Internal Medicine Critical Care Medicine
DX: J30.9 Allergic rhinitis, unspecified (principal)

== ENCOUNTER → 2024-10-27 | Outpatient (CLI) | payer OTHER ==
[2024-10-27 11:15] LABS: BUN 48 mg/dl (9-23)
== END | disposition home or self-care (01) ==
LOC: LAB 10:20
PROVIDERS: ATTEND Nurse Practitioner Family
DX: N17.9 Acute kidney failure, unspecified (principal)

== ENCOUNTER → 2024-11-05 | Outpatient (CLI) | payer OTHER | LOC: RAD 14:48 | PROVIDERS: ATTEND Internal Medicine Critical Care Medicine | DX: J44.9 Chronic obstructive pulmonary disease, unspecified (principal); J98.4 Other disorders of lung; G47.33 Obstructive sleep apnea (adult) (pediatric); G25.81 Restless legs syndrome; J96.11 Chronic respiratory failure with hypoxia; J45.50 Severe persistent asthma, uncomplicated; Z68.41 Body mass index [BMI] 40.0-44.9, adult; Z91.198 Patient's noncompliance with other medical treatment and regimen for other reason; J98.11 Atelectasis; Z87.891 Personal history of nicotine dependence ==

== ENCOUNTER 2025-01-10 11:44 | Emergency (ER) | payer OTHER ==
[~2025-01-10] VITALS: Wt 133.8 kg
[~2025-01-10 11:44] MED LIST changes: +ASPIRIN ADULT L81 M2 PO; +DOXYCYCLINE HY100 M3 PO; +JARDIANCE10 MG PO; +LOSARTAN POTAS100 M1 PO
[2025-01-10] MEDS ORDERED: SODIUM CHLORIDE 0.9% 1,000 ML IV ONE (11:55)
[2025-01-10 12:07] LABS: MEAN CELL VOLUME 105.3 fl (81.0-99.0); MEAN CORPUSCULAR HGB 29.6 pg (27.0-31.0); MEAN PLATELET VOLUME 10.6 fl (9.6-12.3); NUCLEATED RED BLOOD CELL 0.5 10*3/uL (0.0-0.0); NUCLEATED RED BLOOD CELL 2.8 % (0.0-0.0); PLATELET COUNT AUTOMATED 212 10*3/uL (130-400); RED CELL DISTRI WIDTH 17.4 % (0-14.5)
[2025-01-10 12:14] LABS: MANUAL DIFF REFLEX YES
[2025-01-10] MEDS ORDERED: SODIUM CHLORIDE 0.9% 100 ML BAG IV ONE (12:15)
[2025-01-10] MEDS ORDERED: IOHEXOL 350 MG/ML 100 ML VIAL IV ONE ×2 (12:15→12:37)
[2025-01-10 12:30] LABS: BUN 36.0 mg/dl (9-23); SGPT/ALT 172.0 U/L (5-49)
[2025-01-10 12:33] LABS: PLATELET SUFFICIENCY NORMAL (NORMAL)
[2025-01-10 12:35] LABS: ABG BASE EXCESS -5.9 mmol/L (-2.0-3.0); ABG O2 SATURATION 93.0 % (94.0-98.0); ARTERIAL BLOOD GAS PO2 79.7 mmHg (83.0-108.0)
[2025-01-10 12:36] LABS: ARTERIAL BLOOD GAS PH 7.135 (7.350-7.450)
[2025-01-10] MEDS ORDERED: SODIUM CHLORIDE 0.9% 100 ML IV ONE (12:37)
[2025-01-10] MEDS ORDERED: LEVOFLOXACIN 100 ML IV ONE (13:30)
[2025-01-10] MEDS ORDERED: MIDAZOLAM HCL IN 0.9 % NACL/PF 50 ML IV ONE (13:35)
[2025-01-10] MEDS ORDERED: fentaNYL CITRATE 1,000 MCG in SODIUM CHLORIDE 0.9% 230 ML IV ONE (13:35)
[2025-01-10] MEDS ORDERED: PROPOFOL 50 ML IV SCH (14:10)
[2025-01-10] MEDS ORDERED: NOREPINEPHRINE BITARTRATE/D5W 250 ML IV SCH (14:25)
== END 2025-01-10 16:01 | disposition short-term general hospital (02) ==
LOC: ED 11:44
PROVIDERS: Student in an Organized Health Care Education/Training Program
DX: I46.9 Cardiac arrest, cause unspecified (principal); A41.9 Sepsis, unspecified organism; N17.9 Acute kidney failure, unspecified; E87.5 Hyperkalemia; J18.9 Pneumonia, unspecified organism; J93.9 Pneumothorax, unspecified; F41.9 Anxiety disorder, unspecified; F32.A Depression, unspecified; J44.9 Chronic obstructive pulmonary disease, unspecified; E66.9 Obesity, unspecified; I11.0 Hypertensive heart disease with heart failure; I50.9 Heart failure, unspecified; Z90.710 Acquired absence of both cervix and uterus; Z88.0 Allergy status to penicillin; Z87.891 Personal history of nicotine dependence